=== PATIENT | male | born 1985 | race Caucasian/White ===

== ENCOUNTER 2018-02-25 21:02 | Emergency (ER) | payer SELFPAY ==
--- NOTE | 2018-02-25 22:12 | ER Document Report ---
HPI - HPI Patient complains to provider of: Skin lesion to the toe Onset: Other - 10 months Onset/Duration: Worse Quality of pain: Achy Pain Level: 1 Context: Patient states that he got a blister to his right great toe about 10 months ago. Patient states since then the area has become swollen, crusted. Patient states that he will use a shaver in the shower to remove skin. Patient states that he had a foul-smelling drainage from the wound today which prompted him to come in. Associated Symptoms: Other - Right great toe skin lesion Exacerbated by: Denies Relieved by: Denies Similar symptoms previously: No Recently seen / treated by doctor: No - ROS ROS below otherwise negative: Yes Systems Reviewed and Negative: Yes All other systems reviewed and negative - CONSTITUTIONAL Constitutional: DENIES: Fever, Chills - MUSCULOSKELETAL Musculoskeletal: REPORTS: Extremity pain - pinched nerve in lower back, Swelling - DERM Skin Color: Normal Notes: Thickened skin lesion Past Medical History - General Information source: Patient - Social History Smoking Status: Current Every Day Smoker Chew tobacco use (# tins/day): No Smoking Education Provided: Yes Frequency of alcohol use: None Drug Abuse: Marijuana Occupation: Traffic Family History: Reviewed & Not Pertinent Patient has suicidal ideation: No Patient has homicidal ideation: No - Medical History Medical History: Negative Renal/ Medical History: Denies: Hx Peritoneal Dialysis Surgical Hx: Negative - Immunizations Immunizations up to date: Yes Hx Diphtheria, Pertussis, Tetanus Vaccination: Yes Vertical Provider Document - CONSTITUTIONAL Agree With Documented VS: Yes Exam Limitations: No Limitations General Appearance: WD/WN, No Apparent Distress - INFECTION CONTROL TRAVEL OUTSIDE OF THE [place] IN LAST 30 DAYS: No - HEENT HEENT: Atraumatic, Normocephalic - NECK Neck: Normal Inspection - RESPIRATORY Respiratory: No Respiratory Distress - CARDIOVASCULAR Pulses: Normal: Dorsalis pedis - MUSCULOSKELETAL/EXTREMETIES Musculoskeletal/Extremeties: MAEW, FROM, Non-Tender - NEURO Level of Consciousness: Awake, Alert, Appropriate - DERM Integumentary: Warm, Dry Notes: Patient with a thickened skin lesion to the medial margin of right great toe with central darkened area, no noted purulent drainage Course - Re-evaluation Re-evalutation: 02/25/18 23:30 Patient continues hypertensive. Offered patient further evaluation of his hypertension as well as potentially starting him on medication to manage his blood pressure. Patient declined any additional labs or medications. Patient also advised that his blood sugar is elevated and he is likely diabetic. Patient states that he prefers to follow-up with the doctor on an outpatient basis and would not like to be started on any medications at this time. Patient advised that untreated diabetes can make chronic foot wounds slow to heal and prone to complications. - Vital Signs Vital signs: Temp Pulse Resp BP Pulse Ox 98.2 F 98 20 184/92 H 96 02/25/18 21:03 02/25/18 21:03 02/25/18 21:03 02/25/18 21:03 02/25/18 21:03 - Diagnostic Test Radiology reviewed: Pending, Image reviewed Discharge - Discharge Clinical Impression: Elevated blood pressure reading, Skin lesion of foot Condition: Stable Disposition: HOME, SELF-CARE Instructions: Cephalexin ([facility]), High Blood Pressure ([facility]) Additional Instructions: Return immediately for any new or worsening symptoms Followup with your primary care provider, call tomorrow to make a followup appointment Your blood sugar was mildly elevated today. Limit concentrated sweets and carbohydrates in your diet. you will need to follow-up with the primary doctor to have your blood sugar reevaluated to confirm that you do not have diabetes. Your blood pressure was elevated tonight, you will need to recheck with the primary doctor to have this reevaluated. Follow-up with dermatology for further evaluation of skin lesion. Prescriptions: Cephalexin Monohydrate [Keflex 500 mg Capsule] 500 mg PO Q6H 5 Days capsule Forms: Elevated Blood Pressure, Smoking Cessation Education Referrals: [facility] [Provider Group] - Follow up as needed SIMON LACKEY DO [ACTIVE STAFF] - Follow up as needed [facility] [Provider Group] - Follow up in 3-5 days
--- NOTE | 2018-02-25 23:45 | RADIOLOGY REPORT (SQ) ---
EXAM DESCRIPTION: TOE RIGHT CLINICAL HISTORY: 32 years, Male, r great toe wound/growth COMPARISON: None. NUMBER OF VIEWS: 3 Findings: Swelling Bones, joints, and soft tissues of TOE RIGHT appear otherwise intact. No significant effusion. IMPRESSION: Swelling.
[2018-02-26 01:16] VITALS: BP 185/95
== END 2018-02-25 23:50 | disposition home or self-care (01) ==
LOC: ER 21:02
DX: L98.9 Disorder of the skin and subcutaneous tissue, unspecified (principal); R03.0 Elevated blood-pressure reading, without diagnosis of hypertension; F17.200 Nicotine dependence, unspecified, uncomplicated
CPT/HCPCS: 82962; 99283

== ENCOUNTER 2019-11-24 10:47 | Inpatient (IN) | payer SELFPAY ==
--- NOTE | 2019-11-24 11:25 | ER Document Report ---
ED Medical Screen (RME) - General Chief Complaint: Abdominal Pain Stated Complaint: FEVER/LOWER BACK PAIN Time Seen by Provider: 11/24/19 11:12 TRAVEL OUTSIDE OF THE [place] IN LAST 30 DAYS: No - HPI Notes: 11/24/19 11:23 Patient is a 34-year-old male with no significant past medical history aside from obesity who presents complaining of having left mid abdominal pain is been present for the past 4 days and does not radiate. Patient states that over the past couple days he had chills and weakness. He has had excessive thirst throughout this time as well. Patient states that he did have URI symptoms which seem like the flu starting around New Year's and then improved, but his chills returned over the past 3 to 4 days. He does continue to have some nasal congestion and discharge. Denies drug allergies. I have treated and performed a rapid initial assessment of this patient. A comprehensive ED assessment and evaluation of the patient, analysis of test results and completion of medical decision making process will be conducted by additional ED providers. PHYSICAL EXAMINATION: GENERAL: Well-appearing, well-nourished and in no acute distress. A&Ox4. Answers questions appropriately. Abdomen: Limited exam in triage, tenderness over the left mid abdomen. Lungs: Grossly CTAB. - Related Data Allergies/Adverse Reactions: No Known Allergies Allergy (Verified 11/24/19 11:07) Past Medical History - Social History Drug Abuse: Marijuana Renal/ Medical History: Denies: Hx Peritoneal Dialysis - Immunizations Immunizations up to date: Yes Hx Diphtheria, Pertussis, Tetanus Vaccination: Yes Physical Exam - Vital signs Vitals: Temp Pulse Resp BP Pulse Ox 98.7 F 105 H 18 182/92 H 97 11/24/19 11:08 11/24/19 11:08 11/24/19 11:08 11/24/19 11:08 11/24/19 11:08 Course - Vital Signs Vital signs: Temp Pulse Resp BP Pulse Ox 98.7 F 105 H 18 182/92 H 97 11/24/19 11:08 11/24/19 11:08 11/24/19 11:08 11/24/19 11:08 11/24/19 11:08
[2019-11-24 11:41] LABS: ABSOLUTE BASOPHILS # (AUTO) 0.3 10^3/uL (0.0-0.2); ABSOLUTE LYMPHOCYTES (AUTO) 0.9 10^3/uL (0.5-4.7); ABSOLUTE MONOCYTES (AUTO) 0.8 10^3/uL (0.1-1.4); ABSOLUTE NEUT (AUTO) 11.1 10^3/uL (1.7-8.2); BASOPHILS % (AUTO) 2.1 % (0-2); EOSINOPHILS % (AUTO) 0.1 % (0-6); HEMATOCRIT 38.7 % (37.9-51.0); HEMOGLOBIN 13.8 g/dL (13.5-17.0); LYMPHOCYTES % (AUTO) 7.1 % (13-45); MEAN CORPUSCULAR HEMOGLOBIN 28.2 pg (27.0-33.4); MEAN CORPUSCULAR HGB CONC 35.6 g/dL (32.0-36.0); MEAN CORPUSCULAR VOLUME 79 fl (80-97); MONOCYTES % (AUTO) 6.2 % (3-13); PLATELET COUNT 259 10^3/uL (150-450); RED CELL DISTRIBUTION WIDTH 13.8 % (11.5-14.0); SEGMENTED NEUTROPHILS % (AUTO) 84.5 % (42-78); TOTAL CELLS COUNTED % (AUTO) 100 %; WHITE BLOOD COUNT 13.1 10^3/uL (4.0-10.5)
--- NOTE | 2019-11-24 11:55 | RADIOLOGY REPORT (SQ) ---
EXAM DESCRIPTION: CHEST 2 VIEWS COMPLETED DATE/TIME: 11/24/2019 11:38 am REASON FOR STUDY: cough COMPARISON: None. EXAM PARAMETERS: NUMBER OF VIEWS: two views TECHNIQUE: PA and lateral views of the chest were obtained. RADIATION DOSE: NA LIMITATIONS: none FINDINGS: LUNGS AND PLEURA: No consolidation, pleural effusion or pneumothorax. MEDIASTINUM AND HILAR STRUCTURES: No mediastinal or hilar contour abnormality. HEART AND VASCULAR STRUCTURES: The cardiac silhouette and pulmonary vasculature are within normal hills its. BONES: No acute findings. HARDWARE: None in the chest. OTHER: No other finding. IMPRESSION: No acute cardiopulmonary process. TECHNICAL DOCUMENTATION: JOB ID: [id number] [employer]- All Rights Reserved Reading location - IP/workstation name: [email or web address]
[2019-11-24 12:00] LABS: ALBUMIN 3.3 g/dL (3.5-5.0); ALKALINE PHOSPHATASE 79 U/L (38-126); ANION GAP 9 (5-19); ASPARTATE AMINO TRANSFERASE 21 U/L (17-59); BILIRUBIN,DIRECT 0.3 mg/dL (0.0-0.4); BILIRUBIN,TOTAL 1.6 mg/dL (0.2-1.3); BLOOD UREA NITROGEN 13 mg/dL (7-20); CALCIUM 8.5 mg/dL (8.4-10.2); CARBON DIOXIDE 28 mmol/L (22-30); CHLORIDE 93 mmol/L (98-107); GLUCOSE 368 mg/dL (75-110); POTASSIUM 4.9 mmol/L (3.6-5.0); TOTAL PROTEIN 6.8 g/dL (6.3-8.2)
--- NOTE | 2019-11-24 12:11 | ER Document Report ---
ED General - General Chief Complaint: Abdominal Pain Stated Complaint: FEVER/LOWER BACK PAIN Time Seen by Provider: 11/24/19 11:12 TRAVEL OUTSIDE OF THE [place] IN LAST 30 DAYS: No - HPI Notes: 34-year-old male to the emergency department with complaints of subjective fevers, shaking chills, general fatigue and weakness that has been ongoing since New Year's and in the past several days left-sided flank pain. He denies any nausea or vomiting or diarrhea. He does admit to increased thirst and urinary f requency. He denies any past medical history. He is denying any chest pain or shortness of breath. There is family history of diabetes. - Related Data Allergies/Adverse Reactions: No Known Allergies Allergy (Verified 11/24/19 11:07) Past Medical History - General Information source: Patient - Social History Smoking Status: Current Every Day Smoker Frequency of alcohol use: None Drug Abuse: Marijuana Lives with: Alone Family History: DM, Hypertension Patient has suicidal ideation: No Patient has homicidal ideation: No Renal/ Medical History: Denies: Hx Peritoneal Dialysis - Immunizations Immunizations up to date: Yes Hx Diphtheria, Pertussis, Tetanus Vaccination: Yes Review of Systems - Review of Systems Constitutional: Chills, Fever, Malaise, Weakness EENT: Nose congestion. denies: Ear pain, Throat pain Cardiovascular: denies: Chest pain, Palpitations, Dyspnea, Syncope, Dizziness, Lightheaded Respiratory: denies: Cough, Short of breath Gastrointestinal: Abdominal pain. denies: Diarrhea, Nausea, Vomiting, Constipation Genitourinary: Frequency, Flank pain Musculoskeletal: No symptoms reported Skin: No symptoms reported Neurological/Psychological: No symptoms reported -: Yes All other systems reviewed and negative Physical Exam - Vital signs Vitals: Temp Pulse Resp BP Pulse Ox 98.7 F 105 H 18 182/92 H 97 11/24/19 11:08 11/24/19 11:08 11/24/19 11:08 11/24/19 11:08 11/24/19 11:08 Interpretation: Normal - General General appearance: Alert Notes: Patient appears like he does not feel well. He is not in acute distress. - HEENT Head: Normocephalic, Atraumatic Eyes: Normal Pupils: PERRL Ears: Normal External canal: Normal Tympanic membrane: Normal Sinus: Normal Nasal: Normal Mouth/Lips: Normal Mucous membranes: Normal Pharynx: Normal Neck: Normal - Respiratory Respiratory status: No respiratory distress. No: Retractions, Tachypnea Chest status: Nontender. No: Accessory muscle use Breath sounds: Normal. No: Rales, Rhonchi, Stridor, Wheezing Chest palpation: Normal - Cardiovascular Rhythm: Regular Heart sounds: Normal auscultation Murmur: No - Abdominal Inspection: Obese Distension: No distension Bowel sounds: Normal Tenderness: Tender - There is tenderness to palpation over the left flank and left mid abdomen. There is no rebound or guarding. There is negative M cBurney's point and negative Edmonds sign. - Back Back: Normal, Nontender, CVA tenderness - Mild left-sided CVA tenderness - Neurological Neuro grossly intact: Yes Cognition: Normal Orientation: AAOx4 Ynes Coma Scale Eye Opening: Spontaneous [place] Coma Scale Verbal: Oriented Ynes Coma Scale Motor: Obeys Commands [place] Coma Scale Total: 15 Speech: Normal Cranial nerves: Normal Cerebellar coordination: Normal Motor strength normal: LUE, RUE, LLE, RLE Additional motor exam normals: Equal rn community health. No: Pronator drift Sensory: Normal - Psychological Associated symptoms: Normal affect, Normal mood - Skin Skin Temperature: Warm Skin Moisture: Dry Skin Color: Normal Skin irregularity: negative: Rash Course - Re-evaluation Re-evalutation: 11/24/19 Noted blood sugar. Patient has never had diabetes before. He does not appear to be in diabetic ketoacidosishis CO2 is normal, his anion gap is normal, he is not spilling ketones in his urine. Did obtain a CT of his abdomen given his flank pain and it appears that he may have an early pyelonephritis with a phlegmon. His urinalysis is not particularly infectious appearing although he does have some white blood cells in his urine. We will culture the urine and given the new onset diabetes we will go ahead and start him on an antibiotic. Discussed this patient with Dr. Saunders, ER attending. She would like for me to call the urologist at [facility] to discuss the patient's CT findings. Spoke with Dr. Robles, urologist in [place]. He states that he thinks the patient would be best suited to stay overnight for IV antibiotics. At this point since there is no definitive abscess on CT he would like for him to get antibiotics and to be watched closely. He states that Rocephin is a good option for pyelonephritis. He states that the patient has difficulty in the next 48 to [address] scan should be done and if an abscess is there then it should be drained by IR. He states that he thinks that the patient could be admitted here at [place]. He states that if there is difficulty with IR if the patient and the patient progresses with an abscess that the hospitalist team is welcome to call him and he can work on IR at [facility] if necessary. He does suggest if the patient does well that he be sent home on Levaquin as well Updated the patient about this conversation and advised that it would be best if he stayed in the hospital for IV antibiotics and monitoring with good glycemic control. He agrees with the plan and consents to admission. Spoke with Dr. Marks, hospitalist, about the patient. He agrees with the plan for admission and is aware of the conversation I had with the urologist. He is aware of patient's blood sugar and it is trending since getting fluids and insulin. He is aware patient's white count of 13 and his reassuring vital signs. He is aware of CT reading. He is aware of suggestion from urology and he agrees with the plan for admission. He would like for him to go to the medical floor. Impression: New onset diabetes without ketoacidosis with hyperglycemia, left-joana ed flank pain with pyelonephritis with phlegmon. Patient will be admitted to the hospitalist team here and further monitored with IV antibiotics. My ER attending is aware of the admission and she agrees. - Vital Signs Vital signs: Temp Pulse Resp BP Pulse Ox 99.9 F 103 H 14 144/96 H 94 11/24/19 18:07 11/24/19 18:07 11/24/19 18:07 11/24/19 18:07 11/24/19 18:07 - Laboratory Result Diagrams: 11/24/19 11:30 11/24/19 11:30 Laboratory results interpreted by me: 11/24/19 11/24/19 11/24/19 11:30 11:30 12:45 WBC 13.1 H MCV 79 L Lymph % (Auto) 7.1 L Baso % (Auto) 2.1 H Absolute Neuts (auto) 11.1 H Absolute Basos (auto) 0.3 H Seg Neutrophils % 84.5 H Sodium 130.0 L Chloride 93 L Glucose 368 H POC Glucose Total Bilirubin 1.6 H Albumin 3.3 L Urine Protein 30 H Urine Glucose (UA) >=500 H Urine Blood SMALL H 11/24/19 11/24/19 14:56 16:02 WBC MCV Lymph % (Auto) Baso % (Auto) Absolute Neuts (auto) Absolute Basos (auto) Seg Neutrophils % Sodium Chloride Glucose POC Glucose 312 H 295 H Total Bilirubin Albumin Urine Protein Urine Glucose (UA) Urine Blood - Diagnostic Test Radiology reviewed: Image reviewed, Reports reviewed Discharge - Discharge Clinical Impression: Hyperglycemia, Pyelonephritis Condition: Stable Disposition: HOME, SELF-CARE Admitting Provider: Selina (Hospitalist) Unit Admitted: Medical Floor
[2019-11-24] MEDS ORDERED: ONDANSETRON HCL INJ/PF 4 MG/2 ML SDV IV ONE (12:57)
[2019-11-24] MEDS ORDERED: NORMAL SALINE 1000 ML 1,000 ML IV ONE ×3 (12:57→18:22)
[2019-11-24 13:03] LABS: APPEARANCE,URINE CLEAR; BILIRUBIN,URINE NEGATIVE (NEGATIVE); COLOR,URINE YELLOW; GLUCOSE, URINE >=500 mg/dL (NEGATIVE); KETONES,URINE NEGATIVE (NEGATIVE); PROTEIN,URINE 30 mg/dL (NEGATIVE); URINE SPECIFIC GRAVITY 1.035; UROBILINOGEN,URINE NEGATIVE mg/dL (<2.0)
--- NOTE | 2019-11-24 13:03 | RADIOLOGY REPORT (SQ) ---
EXAM DESCRIPTION: CT ABD/PELVIS WITH IV ONLY COMPLETED DATE/TIME: 11/24/2019 12:36 pm REASON FOR STUDY: Left abd pain COMPARISON: None. TECHNIQUE: CT scan of the abdomen and pelvis performed using helical scanning technique with dynamic intravenous contrast injection. No oral contrast. Images reviewed with lung, soft tissue, and bone windows. Reconstructed coronal and sagittal MPR images reviewed. Delayed images for evaluation of the urinary system also acquired. All images stored on PACS. All CT scanners at this facility use dose modulation, iterative reconstruction, and/or weight based d osing when appropriate to reduce radiation dose to as low as reasonably achievable (ALARA). [facility]: Dose Right [facility]: CareDose [facility]: Dose Right [facility]: Teradose 4D [facility]: Needcheck CONTRAST TYPE AND DOSE: Contrast/concentration: Isovue 350.00 mg/ml; Total Contrast Delivered: 100.0 ml; Total Saline Delivered: 64.0 ml RENAL FUNCTION: GFR > 60. RADIATION DOSE: CT Rad equipment meets quality standard of care and radiation dose reduction techniq ues were employed. CTDIvol: 21.1 mGy. DLP: 2397 mGy-cm.. LIMITATIONS: None. FINDINGS: LOWER CHEST: No acute findings LIVER: Hepatic steatosis. The portal veins are patent. There is no hepatic mass. SPLEEN: The spleen is enlarged and it measures 20 cm in AP diameter. PANCREAS: No abnormality of the pancreas. GALLBLADDER: No abnormality of the gallbladder that is apparent on CT. ADRENAL GLANDS: No abnormality of the adrenal glands. RIGHT KIDNEY AND URETER: No solid mass, hydronephrosis, nephrolithiasis, hydroureter or ureterolithia sis. LEFT KIDNEY AND URETER: The kidney is enlarged. There is a rounded heterogeneous area in the posteri or-lateral aspect of the kidney that measures approximately 5.8 x 5.3 cm ; the area is associated wit h stranding of the perirenal fat and thickening of the adjacent retroperitoneal reflections. The fat stranding extends along the proximal left ureter. There is no hydronephrosis, hydroureter, nephroli thiasis or ureterolithiasis. AORTA AND VESSELS: No aneurysm or dissection of the abdominal aorta. RETROPERITONEUM: No retroperitoneal adenopathy, hemorrhage or mass. BOWEL AND PERITONEAL CAVITY: Colonic diverticulosis without diverticulitis. There is no bowel obstru ction, bowel wall thickening, or pericolonic/perienteric inflammation. There is no mesenteric adenop athy, free intraperitoneal fluid or mesenteric/omental inflammation. APPENDIX: Normal. PELVIS: No abnormality. ABDOMINAL WALL: No masses or hernias BONES: No acute findings. OTHER: Accessory splenule. IMPRESSION: 1. Rounded heterogeneous area in the posterolateral aspect of the left kidney that measu res approximately 5.8 x 5.3 cm. The finding is favored to represent a pyelonephritis with phlegmon f ormation. Correlate with urinalysis. 2. Splenomegaly. TECHNICAL DOCUMENTATION: JOB ID: [id number] Quality ID # [id number]: Final reports with documentation of one or more dose reduction techniques (e.g., Au tomated exposure control, adjustment of the mA and/or kV according to patient size, use of iterative reconstruction technique) 2010 [employer]- All Rights Reserved Reading location - IP/workstation name: [email or web address]
[2019-11-24] MEDS ORDERED: MORPHINE SULFATE 10 MG/ML INJ IV ONE (14:03)
[2019-11-24] MEDS ORDERED: CEFTRIAXONE 1 GM/D5W RTU 1 GM/50 ML RTUPB IV ONE (14:09)
[2019-11-24] MEDS ORDERED: INSULIN REG, HUMAN 100 UNIT/ML 3 ML VIAL (PYX) IV ONE (15:02)
[2019-11-24] MEDS ORDERED: ACETAMINOPHEN 325 MG TABLET PO PRN (18:07)
[2019-11-24] MEDS ORDERED: MAGNESIUM HYDROXIDE SUSP 30 ML UDCUP PO PRN (18:07)
[2019-11-24] MEDS ORDERED: ONDANSETRON HCL INJ/PF 4 MG/2 ML SDV IV PRN (18:07)
[2019-11-24] MEDS ORDERED: MAG HYDROX/AL HYDROX/SIMETH SUSP 30 ML UDCUP PO PRN (18:07)
[2019-11-24] MEDS ORDERED: KETOROLAC TROMETHAMINE INJ/PF 30 MG/1 ML SDV IV PRN (18:15)
[2019-11-24] MEDS ORDERED: MORPHINE SULFATE 10 MG/ML INJ IV PRN (18:15)
[2019-11-24] MEDS ORDERED: DEXTROSE 40% GEL 15 GM TUBE PO PRN ×2 (18:16)
[2019-11-24] MEDS ORDERED: DEXTROSE 50%-WATER 25 GM/50 ML DISP.SYRIN IV PRN ×2 (18:16)
[2019-11-24] MEDS ORDERED: GLUCAGON,HUMAN RECOMB 1 MG INJ IM PRN (18:16)
[2019-11-24] MEDS ORDERED: TRAZODONE HCL 50 MG TABLET PO PRN (18:45)
[2019-11-24] MEDS ORDERED: NICOTINE 21 MG/24 HR PATCH.TD24 TD PRN (18:45)
--- NOTE | 2019-11-24 18:55 | PDOC H&P ---
History of Present Illness Admission Date/PCP: 11/24/19 17:05 Patient complains of: Left flank pain, chills and shakes History of Present Illness: LOC BRAVO is a 34 year old male who does not see a primary care physician regularly. He does not report any significant past medical history. He states that as early as [place] he had an episode of chills and shakes. He felt warm. Without any intervention he felt slightly better. He thought he had a flulike illness over the next several days and in fact 5 to 6 days after the initial onset he felt better. He was active. His appetite was good. On November 22 he had Reiger's again. He had some nausea with decreased appetite. He still felt bad on November 23 and today, November 24, without improvement who presented to the emergency department. He was found to be tachycardic, slightly hypertensive, low-grade fever with some diaphoresis. He was mentating clearly. Laboratory assessment revealed a glucose of 368. White blood cell count was slightly elevated at 13,000. Total bilirubin was slightly elevated at 1.5. Urinalysis was positive for glucose, 4 white cells per high-power field, 4 red cells per high-power field with leukocyte esterase and nitrite negative. Glucose and protein were positive. CT scan showed splenomegaly as well as a heterogeneous collection on the left kidney that is 5 x 5 cm approximately. This was felt to be pyelonephritis or early abscess. The emergency department provider spoke to urology (Dr. Joyce). The plan was to admit the patient. Place the patient on IV antibiotics and obtain good control of his diabetes. He suggested repeating a CT scan in 48 hours and if there is abscess formation have interventional radiology drain the lesion. If there is no progressive change in the lesion the patient can be transitioned to oral Levaquin and sent home with urology follow-up. Renal function is normal at this time. The patient was referred to the hospital service for admission. 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 Decision making would fall to his mother. Family History Family History: DM Parental Family History Reviewed: Yes - Mother with diabetes, father unknown Children Family History Reviewed: NA Sibling(s) Family History Reviewed.: NA Medication/Allergy Home Medications: Ciprofloxacin HCl [Ciloxan] 1 drop OP ASDIR PRN #1 bottle 01/28/13 Cephalexin Monohydrate [Keflex 500 mg Capsule] 500 mg PO Q6H 5 Days capsule 02/25/18 Allergies/Adverse Reactions: No Known Allergies Allergy (Verified 11/24/19 11:07) Review of Systems All systems: reviewed and no additional remarkable complaints except as stated Constitutional: PRESENT: chills, fever(s), headache(s), night sweats Gastrointestinal: PRESENT: constipation - Occasional Genitourinary: PRESENT: other - Left flank pain Endocrine: PRESENT: polydipsia, polyuria Physical Exam Vital Signs: Temp Pulse Resp BP Pulse Ox 99.9 F 103 H 14 144/96 H 94 11/24/19 18:07 11/24/19 18:07 11/24/19 18:07 11/24/19 18:07 11/24/19 18:07 Intake & Output 11/23/19 11/24/19 11/25/19 06:59 06:59 06:59 Intake Total 2050 Output Total 425 Balance 1625 Weight 151.9 kg General appearance: PRESENT: cooperative, mild distress, morbidly obese, well- developed. ABSENT: disheveled Head exam: PRESENT: atraumatic, normocephalic Eye exam: PRESENT: conjunctiva pink, EOMI, PERRLA, scleral icterus. ABSENT: nystagmus Ear exam: PRESENT: normal external ear exam. ABSENT: bleeding, drainage Mouth exam: PRESENT: dry mucosa, neck supple, tongue midline Teeth exam: ABSENT: poor dentation Neck exam: PRESENT: full ROM. ABSENT: lymphadenopathy, tenderness Respiratory exam: PRESENT: clear to auscultation fabiola, symmetrical, unlabored. ABSENT: accessory muscle use, prolonged expiratory phas, rales, rhonchi, tachypnea, wheezes Cardiovascular exam: PRESENT: RRR, +S1, +S2 GI/Abdominal exam: PRESENT: normal bowel sounds, soft, tenderness - Tenderness begins lateral to the left midclavicular line. He is tender through the post erior axillary line., other - Protuberant abdomen. ABSENT: guarding Rectal exam: PRESENT: deferred Gentrourinary exam: ABSENT: indwelling catheter Extremities exam: PRESENT: full ROM. ABSENT: joint swelling, pedal edema Musculoskeletal exam: PRESENT: ambulatory, normal inspection. ABSENT: deformity Neurological exam: PRESENT: alert, awake, oriented to person, oriented to place, oriented to time, oriented to situation, CN II-XII grossly intact. ABSENT: altered, motor sensory deficit Psychiatric exam: PRESENT: appropriate affect. ABSENT: agitated, anxious Focused psych exam: ABSENT: delusional, restlessness Skin exam: PRESENT: warm - And slightly diaphoretic. ABSENT: rash Results Laboratory Results: 11/24/19 11:30 11/24/19 11:30 11/24/19 11/24/19 11/24/19 11:30 11:30 12:45 WBC 13.1 H RBC 4.90 Hgb 13.8 Hct 38.7 MCV 79 L MCH 28.2 MCHC 35.6 RDW 13.8 Plt Count 259 Seg Neutrophils % 84.5 H Sodium 130.0 L Potassium 4.9 Chloride 93 L Carbon Dioxide 28 Anion Gap 9 BUN 13 Creatinine 0.91 Est GFR ( Amer) > 60 Glucose 368 H Calcium 8.5 Total Bilirubin 1.6 H AST 21 Alkaline Phosphatase 79 Total Protein 6.8 Albumin 3.3 L Lipase 103.8 Urine Color YELLOW Urine Appearance CLEAR Urine pH 7.0 Ur Specific [place] 1.035 Urine Protein 30 H Urine Glucose (UA) >=500 H Urine Ketones NEGATIVE Urine Blood SMALL H Urine RBC (Auto) 4 Impressions: Abdomen/Pelvis CT 11/24/19 11:22 IMPRESSION: 1. Rounded heterogeneous area in the posterolateral aspect of the left kidney that measures approximately 5.8 x 5.3 cm. The finding is favored to represent a pyelonephritis with phlegmon formation. Correlate with urinalysis. 2. Splenomegaly. Chest X-Ray 11/24/19 11:22 IMPRESSION: No acute cardiopulmonary process. Assessment and Plan - Diagnosis (1) Pyelonephritis Is this a current diagnosis for this admission?: Yes (2) Hyperglycemia due to type 2 diabetes mellitus Qualifiers: Diabetes mellitus manager intermediate insulin use: without manager intermediate use Qualified Code(s): E11.65 - Type 2 diabetes mellitus with hyperglycemia Is this a current diagnosis for this admission?: Yes (3) Hyponatremia Is this a current diagnosis for this admission?: Yes (4) New onset type 2 diabetes mellitus Is this a current diagnosis for this admission?: Yes (5) Splenomegaly Is this a current diagnosis for this admission?: Yes (6) Morbid obesity with BMI of 45.0-49.9, adult Is this a current diagnosis for this admission?: Yes (7) Tobacco dependence due to cigarettes Is this a current diagnosis for this admission?: Yes (8) Vapes nicotine containing substance Is this a current diagnosis for this admission?: Yes - Plan Summary Summary: Pyelonephritis-per the suggestion of urology will admit the patient. The patient will be on IV ceftriaxone. Will monitor the patient closely. If he improves then we can discharge him home on oral Levaquin and set up a follow-up with urology. If there is no improvement repeat the CT scan in 48 hours and if an abscess has formed interventional radiology can drain it. New onset diabetes mellitus-the patient will have Accu-Cheks with meals and at bedtime. I have started metformin 500 mg twice daily. I have initiated Humulin 70/30 twice daily. Without insurance I would like to initiate a regimen that would be affordable for this patient. Hyponatremia-the sodium is low partly due to the hyperglycemia. Patient also was experiencing increased thirst. He will be on aggressive IV fluids for the infection and we will monitor the electrolytes and renal function. Morbid obesity-the patient's BMI is 45.4. This certainly could contribute to the diabetes. Once he has better, I expect a strict diabetes diet to help with weight loss. Splenomegaly-the patient's spleen is enlarged. There is no obvious etiology. Consider further assessment as an outpatient. Tobacco dependence-the patient is a cigarette smoker. He was smoking up to 2- 1/2 packs daily. 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 A nicotine patch will be available if needed. Constipation-the patient reports intermittent constipation. We will start with Colace and have other medications available. - Time Time Spent with patient: 35 or more minutes Smoking Cessation Education: 3 to 10 minutes Medications reviewed and adjusted accordingly: Yes Anticipated discharge: Home - Inpatient Certification Based on my medical assessment, after consideration of the patient's comorbidities, presenting symptoms, or acuity I expect that the services needed warrant INPATIENT care.: Yes I certify that my determination is in accordance with my understanding of Medicare's requirements for reasonable and necessary INPATIENT services [42 CFR 412.3e].: Yes Medical Necessity: Need Close Monitoring Due to Risk of Patient Decompensation, Need For IV Fluids, Need for Pain Control, Need for IV Antibiotics, Risk of Com plication if Not Cared For in Hospital Post Hospital Care: D/C Revenue Inspector Documentation
[2019-11-24] MEDS: INSULIN REG, HUMAN 100 UNIT/ML 3 ML VIAL (PYX) SUBCUT SCH (22:59)
[2019-11-24] MEDS: NORMAL SALINE 1000 ML 1,000 ML IV PRN (23:31)
[2019-11-25 05:36] LABS: ABSOLUTE LYMPHOCYTES (AUTO) 0.9 10^3/uL (0.5-4.7); ABSOLUTE MONOCYTES (AUTO) 0.8 10^3/uL (0.1-1.4); ABSOLUTE NEUT (AUTO) 7.5 10^3/uL (1.7-8.2); BASOPHILS % (AUTO) 0.5 % (0-2); EOSINOPHILS % (AUTO) 0.5 % (0-6); HEMATOCRIT 36.2 % (37.9-51.0); HEMOGLOBIN 13.3 g/dL (13.5-17.0); LYMPHOCYTES % (AUTO) 9.8 % (13-45); MEAN CORPUSCULAR HEMOGLOBIN 28.9 pg (27.0-33.4); MEAN CORPUSCULAR HGB CONC 36.7 g/dL (32.0-36.0); MEAN CORPUSCULAR VOLUME 79 fl (80-97); MONOCYTES % (AUTO) 8.6 % (3-13); PLATELET COUNT 248 10^3/uL (150-450); RED BLOOD COUNT 4.61 10^6/uL (4.35-5.55); RED CELL DISTRIBUTION WIDTH 14.1 % (11.5-14.0); SEGMENTED NEUTROPHILS % (AUTO) 80.6 % (42-78); TOTAL CELLS COUNTED % (AUTO) 100 %; WHITE BLOOD COUNT 9.2 10^3/uL (4.0-10.5)
[2019-11-25 05:54] LABS: ALKALINE PHOSPHATASE 72 U/L (38-126); ANION GAP 10 (5-19); ASPARTATE AMINO TRANSFERASE 27 U/L (17-59); BILIRUBIN,DIRECT 0.3 mg/dL (0.0-0.4); BILIRUBIN,TOTAL 1.2 mg/dL (0.2-1.3); BLOOD UREA NITROGEN 13 mg/dL (7-20); CALCIUM 8.1 mg/dL (8.4-10.2); CARBON DIOXIDE 25 mmol/L (22-30); CHLORIDE 98 mmol/L (98-107); GLUCOSE 278 mg/dL (75-110); POTASSIUM 4.6 mmol/L (3.6-5.0); TOTAL PROTEIN 6.4 g/dL (6.3-8.2)
[2019-11-25] MEDS: PANTOPRAZOLE SODIUM 20 MG TABLET.DR PO SCH (05:58)
[2019-11-25] MEDS: NORMAL SALINE 1000 ML 1,000 ML IV PRN (07:26)
[2019-11-25] MEDS ORDERED: HUM INSULIN NPH/REG INSULIN HM 100 UNIT/1 ML 3 ML SUBCUT SCH (08:00)
[2019-11-25] MEDS: INSULIN REG, HUMAN 100 UNIT/ML 3 ML VIAL (PYX) SUBCUT SCH ×4 (08:49→21:59)
[2019-11-25] MEDS: METFORMIN HCL 500 MG TABLET PO SCH ×2 (08:49→16:53)
[2019-11-25] MEDS: DOCUSATE SODIUM 100 MG CAPSULE PO SCH ×2 (09:24→17:00)
[2019-11-25] MEDS: HUM INSULIN NPH/REG INSULIN HM 100 UNIT/1 ML 3 ML SUBCUT SCH ×2 (09:25→16:54)
[2019-11-25] MEDS ORDERED: CEFTRIAXONE 2 GM/D5W RTU 2 GM/50 ML RTUPB IV SCH (10:00)
--- NOTE | 2019-11-25 14:33 | PDOC DISCHARGE SUMMARY ---
Impression - Admit/DC Date/PCP Admission Date/Primary Care Provider: 11/24/19 18:07 Discharge Date: 11/25/19 - Discharge Diagnosis (1) Pyelonephritis Is this a current diagnosis for this admission?: Yes (2) Hyperglycemia due to type 2 diabetes mellitus Is this a current diagnosis for this admission?: Yes (3) Hyponatremia Is this a current diagnosis for this admission?: Yes (4) New onset type 2 diabetes mellitus Is this a current diagnosis for this admission?: Yes (5) Splenomegaly Is this a current diagnosis for this admission?: Yes (6) Morbid obesity with BMI of 45.0-49.9, adult Is this a current diagnosis for this admission?: Yes (7) Tobacco dependence due to cigarettes Is this a current diagnosis for this admission?: Yes (8) Vapes nicotine containing substance Is this a current diagnosis for this admission?: Yes - Assessment Summary: Pyelonephritis-per the suggestion of urology will admit the patient. The patient will be on IV ceftriaxone. Will monitor the patient closely. If he improves then we can discharge him home on oral Levaquin and set up a follow-up with urology. If there is no improvement repeat the CT scan in 48 hours and if an abscess has formed interventional radiology can drain it. New onset diabetes mellitus-the patient will have Accu-Cheks with meals and at bedtime. I have started metformin 500 mg twice daily. I have initiated Humulin 70/30 twice daily. Without insurance I would like to initiate a regimen that would be affordable for this patient. Hyponatremia-the sodium is low partly due to the hyperglycemia. Patient also was experiencing increased thirst. He will be on aggressive IV fluids for the infection and we will monitor the electrolytes and renal function. Morbid obesity-the patient's BMI is 45.4. This certainly could contribute to the diabetes. Once he has better, I expect a strict diabetes diet to help with weight loss. Splenomegaly-the patient's spleen is enlarged. There is no obvious etiology. Consider further assessment as an outpatient. Tobacco dependence-the patient is a cigarette smoker. He was smoking up to 2- 1/2 packs daily. 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 A nicotine patch will be available if needed. Constipation-the patient reports intermittent constipation. We will start with Colace and have other medications available. - Additional Information Resuscitation Status: Full Code Discharge Diet: Diabetic Discharge Activity: Activity As Tolerated Referrals: [facility] [Outside] Prescriptions: Metformin HCl [Glucophage 500 mg Tablet] 500 mg PO BIDACBS 15 Days #30 tablet Glipizide [Glucotrol 5 mg Tablet] 5 mg PO BIDACBS 15 Days #30 tablet Levofloxacin [Levaquin 750 mg Tablet] 750 mg PO DAILY 10 Days #10 tablet Home Medications: Glipizide [Glucotrol 5 mg Tablet] 5 mg PO BIDACBS 15 Days #30 tablet 11/25/19 Levofloxacin [Levaquin 750 mg Tablet] 750 mg PO DAILY 10 Days #10 tablet 11/25/19 Metformin HCl [Glucophage 500 mg Tablet] 500 mg PO BIDACBS 15 Days #30 tablet 11/25/19 Physical Exam Vital Signs: Temp Pulse Resp BP Pulse Ox 98.4 F 93 16 161/92 H 95 11/25/19 11:04 11/25/19 11:04 11/25/19 11:04 11/25/19 11:04 11/25/19 11:04 Intake & Output 11/24/19 11/25/19 11/26/19 06:59 06:59 06:59 Intake Total 4480 1050 Output Total 425 Balance 4055 1050 Weight 151.9 kg Results Laboratory Results: WBC 9.2 10^3/uL (4.0-10.5) 11/25/19 05:13 RBC 4.61 10^6/uL (4.35-5.55) 11/25/19 05:13 Hgb 13.3 g/dL (13.5-17.0) L 11/25/19 05:13 Hct 36.2 % (37.9-51.0) L 11/25/19 05:13 MCV 79 fl (80-97) L 11/25/19 05:13 MCH 28.9 pg (27.0-33.4) 11/25/19 05:13 MCHC 36.7 g/dL (32.0-36.0) H 11/25/19 05:13 RDW 14.1 % (11.5-14.0) H 11/25/19 05:13 Plt Count 248 10^3/uL (150-450) 11/25/19 05:13 Lymph % (Auto) 9.8 % (13-45) L 11/25/19 05:13 [place] % (Auto) 8.6 % (3-13) 11/25/19 05:13 Eos % (Auto) 0.5 % (0-6) 11/25/19 05:13 Baso % (Auto) 0.5 % (0-2) 11/25/19 05:13 Absolute Neuts (auto) 7.5 10^3/uL (1.7-8.2) 11/25/19 05:13 Absolute Lymphs (auto) 0.9 10^3/uL (0.5-4.7) 11/25/19 05:13 Absolute Monos (auto) 0.8 10^3/uL (0.1-1.4) 11/25/19 05:13 Absolute Eos (auto) 0.0 10^3/uL (0.0-0.6) 11/25/19 05:13 Absolute Basos (auto) 0.0 10^3/uL (0.0-0.2) 11/25/19 05:13 Seg Neutrophils % 80.6 % (42-78) H 11/25/19 05:13 Sodium 132.9 mmol/L (137-145) L 11/25/19 05:13 Potassium 4.6 mmol/L (3.6-5.0) 11/25/19 05:13 Chloride 98 mmol/L (98-107) 11/25/19 05:13 Carbon Dioxide 25 mmol/L (22-30) 11/25/19 05:13 Anion Gap 10 (5-19) 11/25/19 05:13 BUN 13 mg/dL (7-20) 11/25/19 05:13 Creatinine 0.79 mg/dL (0.52-1.25) 11/25/19 05:13 Est GFR ( Amer) > 60 (>60) 11/25/19 05:13 Est GFR (MDRD) Non-Af > 60 (>60) 11/25/19 05:13 Glucose 278 mg/dL (75-110) H 11/25/19 05:13 POC Glucose 285 mg/dL (70-110) H 11/25/19 12:22 Calcium 8.1 mg/dL (8.4-10.2) L 11/25/19 05:13 Magnesium 2.0 mg/dL (1.6-2.3) 11/25/19 05:13 Total Bilirubin 1.2 mg/dL (0.2-1.3) 11/25/19 05:13 Direct Bilirubin 0.3 mg/dL (0.0-0.4) 11/25/19 05:13 Neonat Total Bilirubin Not Reportable 11/25/19 05:13 Neonat Direct Bilirubin Not Reportable 11/25/19 05:13 Neonat Indirect Bili Not Reportable 11/25/19 05:13 AST 27 U/L (17-59) 11/25/19 05:13 ALT 23 U/L (<50) 11/25/19 05:13 Alkaline Phosphatase 72 U/L (38-126) 11/25/19 05:13 Total Protein 6.4 g/dL (6.3-8.2) 11/25/19 05:13 Albumin 3.0 g/dL (3.5-5.0) L 11/25/19 05:13 Lipase 103.8 U/L (23-300) 11/24/19 11:30 TSH 4.76 uIU/mL (0.47-4.68) H 11/25/19 05:13 Urine Color YELLOW 11/24/19 12:45 Urine Appearance CLEAR 11/24/19 12:45 Urine pH 7.0 (5.0-9.0) 11/24/19 12:45 Ur Specific [place] 1.035 11/24/19 12:45 Urine Protein 30 mg/dL (NEGATIVE) H 11/24/19 12:45 Urine Glucose (UA) >=500 mg/dL (NEGATIVE) H 11/24/19 12:45 Urine Ketones NEGATIVE mg/dL (NEGATIVE) 11/24/19 12:45 Urine Blood SMALL (NEGATIVE) H 11/24/19 12:45 Urine Nitrite (Reflex) NEGATIVE (NEGATIVE) 11/24/19 12:45 Urine Bilirubin NEGATIVE (NEGATIVE) 11/24/19 12:45 Urine Urobilinogen NEGATIVE mg/dL (<2.0) 11/24/19 12:45 Leukocyte Esterase Rfl NEGATIVE (NEGATIVE) 11/24/19 12:45 Urine RBC (Auto) 4 /HPF 11/24/19 12:45 Urine WBC (Reflex) 4 /HPF 11/24/19 12:45 Urine Mucus (Auto) RARE /LPF 11/24/19 12:45 Urine Ascorbic Acid NEGATIVE (NEGATIVE) 11/24/19 12:45 Impressions: Abdomen/Pelvis CT 11/24/19 11:22 IMPRESSION: 1. Rounded heterogeneous area in the posterolateral aspect of the left kidney that measures approximately 5.8 x 5.3 cm. The finding is favored to represent a pyelonephritis with phlegmon formation. Correlate with urinalysis. 2. Splenomegaly. Chest X-Ray 11/24/19 11:22 IMPRESSION: No acute cardiopulmonary process.
[2019-11-25] MEDS ORDERED: LEVOFLOXACIN 750 MG TABLET PO SCH (15:00)
[2019-11-25] MEDS ORDERED: LORAZEPAM 1 MG TABLET PO PRN (15:29)
[2019-11-25] MEDS: GLIPIZIDE 5 MG TABLET PO SCH (17:13)
[2019-11-25] MEDS: LINEZOLID 600 MG TABLET PO SCH (17:13)
--- NOTE | 2019-11-25 18:54 | PDOC PROGRESS REPORT ---
Subjective Progress Note for:: 11/25/19 Subjective:: M was completed the patient's discharge because he refused to let us put an IV back in and was going to leave AGAINST MEDICAL ADVICE. Because of his infection and the bioavailability of Levaquin I was prepared to discharge him with Levaquin, metformin and Glucotrol (for his diabetes) when microbiology called and said that all of his cultures are positive for MRSA. Explained to the patient that he needed to stay and he agreed. Reason For Visit: PYELONEPHRITIS,NEW ONSET DIABETES MELLITUS,MORBID Physical Exam Vital Signs: Temp Pulse Resp BP Pulse Ox 98.6 F 93 18 141/88 H 100 11/25/19 15:27 11/25/19 15:27 11/25/19 15:27 11/25/19 15:27 11/25/19 15:27 Intake & Output 11/24/19 11/25/19 11/26/19 06:59 06:59 06:59 Intake Total 4480 1850 Output Total 425 Balance 4055 1850 Weight 151.9 kg General appearance: PRESENT: mild distress Respiratory exam: PRESENT: clear to auscultation fabiola. ABSENT: rales, rhonchi, wheezes Cardiovascular exam: PRESENT: RRR, +S1, +S2 GI/Abdominal exam: PRESENT: normal bowel sounds, tenderness - cutting machine tender decorative on the left flank, other - Protuberant abdomen Neurological exam: PRESENT: alert, awake, oriented to person, oriented to place, oriented to time, oriented to situation, CN II-XII grossly intact Psychiatric exam: PRESENT: agitated Results Laboratory Results: 11/25/19 05:13 11/25/19 05:13 11/25/19 11/25/19 11/25/19 05:13 05:13 05:13 WBC 9.2 RBC 4.61 Hgb 13.3 L Hct 36.2 L MCV 79 L MCH 28.9 MCHC 36.7 H RDW 14.1 H Plt Count 248 Seg Neutrophils % 80.6 H Sodium 132.9 L Potassium 4.6 Chloride 98 Carbon Dioxide 25 Anion Gap 10 BUN 13 Creatinine 0.79 Est GFR ( Amer) > 60 Glucose 278 H Calcium 8.1 L Magnesium 2.0 Total Bilirubin 1.2 AST 27 Alkaline Phosphatase 72 Total Protein 6.4 Albumin 3.0 L TSH 4.76 H 11/24/19 15:55 Blood Blood Culture (PCR) - Final Staphylococcus Aureus Impressions: Abdomen/Pelvis CT 11/24/19 11:22 IMPRESSION: 1. Rounded heterogeneous area in the posterolateral aspect of the left kidney that measures approximately 5.8 x 5.3 cm. The finding is favored to represent a pyelonephritis with phlegmon formation. Correlate with urinalysis. 2. Splenomegaly. Chest X-Ray 11/24/19 11:22 IMPRESSION: No acute cardiopulmonary process. Assessment and Plan - Diagnosis (1) Pyelonephritis Is this a current diagnosis for this admission?: Yes (2) Hyperglycemia due to type 2 diabetes mellitus Qualifiers: Diabetes mellitus vocational school teacher insulin use: without fci use Qualified Code(s): E11.65 - Type 2 diabetes mellitus with hyperglycemia Is this a current diagnosis for this admission?: Yes (3) Hyponatremia Is this a current diagnosis for this admission?: Yes (4) New onset type 2 diabetes mellitus Is this a current diagnosis for this admission?: Yes (5) Splenomegaly Is this a current diagnosis for this admission?: Yes (6) Morbid obesity with BMI of 45.0-49.9, adult Is this a current diagnosis for this admission?: Yes (7) Tobacco dependence due to cigarettes Is this a current diagnosis for this admission?: Yes (8) Vapes nicotine containing substance Is this a current diagnosis for this admission?: Yes (9) MRSA bacteremia Is this a current diagnosis for this admission?: Yes - Plan Summary Summary: Pyelonephritis-per the suggestion of urology will admit the patient. The patient will be on IV ceftriaxone. Will monitor the patient closely. If he improves then we can discharge him home on oral Levaquin and set up a follow-up with urology. If there is no improvement repeat the CT scan in 48 hours and if an abscess has formed interventional radiology can drain it. New onset diabetes mellitus-the patient will have Accu-Cheks with meals and at bedtime. I have started metformin 500 mg twice daily. I have initiated Humulin 70/30 twice daily. Without insurance I would like to initiate a regimen that would be affordable for this patient. Hyponatremia-the sodium is low partly due to the hyperglycemia. Patient also was experiencing increased thirst. He will be on aggressive IV fluids for the infection and we will monitor the electrolytes and renal function. Morbid obesity-the patient's BMI is 45.4. This certainly could contribute to the diabetes. Once he has better, I expect a strict diabetes diet to help with weight loss. Splenomegaly-the patient's spleen is enlarged. There is no obvious etiology. Consider further assessment as an outpatient. Tobacco dependence-the patient is a cigarette smoker. He was smoking up to 2- 1/2 packs daily. 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 A nicotine patch will be available if needed. Constipation-the patient reports intermittent constipation. We will start with Colace and have other medications available. 11/25/2019-as noted above patient was about to leave. Luckily microbiology called. I will start the patient on Zyvox. Continue Glucotrol and metformin. The patient has no insurance and so we will need to figure out an antibiotic regimen that is acceptable. He will likely need several more days in the hospital before it is safe to discharge. - Time Time Spent with patient: 25-34 minutes Medications reviewed and adjusted accordingly: Yes
[2019-11-26] MEDS: LINEZOLID 600 MG TABLET PO SCH (05:14)
[2019-11-26] MEDS: PANTOPRAZOLE SODIUM 20 MG TABLET.DR PO SCH (05:14)
[2019-11-26 06:15] LABS: ANION GAP 10 (5-19); BLOOD UREA NITROGEN 13 mg/dL (7-20); CALCIUM 8.7 mg/dL (8.4-10.2); CARBON DIOXIDE 26 mmol/L (22-30); CHLORIDE 97 mmol/L (98-107); GLUCOSE 196 mg/dL (75-110); POTASSIUM 4.7 mmol/L (3.6-5.0)
[2019-11-26] MEDS: INSULIN REG, HUMAN 100 UNIT/ML 3 ML VIAL (PYX) SUBCUT SCH ×2 (07:35→11:54)
[2019-11-26] MEDS: HUM INSULIN NPH/REG INSULIN HM 100 UNIT/1 ML 3 ML SUBCUT SCH (07:35)
[2019-11-26] MEDS: GLIPIZIDE 5 MG TABLET PO SCH (07:35)
[2019-11-26] MEDS: METFORMIN HCL 500 MG TABLET PO SCH (07:35)
[2019-11-26 08:58] VITALS: BP 147/84
[2019-11-26] MEDS: DOCUSATE SODIUM 100 MG CAPSULE PO SCH (09:53)
[2019-11-26] MEDS ORDERED: LISINOPRIL 5 MG TABLET PO SCH (10:00)
--- NOTE | 2019-11-26 16:36 | Left Against Medical Advice ---
Against Medical Advice Admission Date/Time: 11/24/19 18:07 Primary Care Provider: Date of Patient Emigration: 11/26/19 - Diagnosis: (1) MRSA bacteremia Is this a current diagnosis for this admission?: Yes (2) Pyelonephritis Is this a current diagnosis for this admission?: Yes - Summary: Summary: Please see Admission and Progress Notes as well. LOC BRAVO is a 34 M, who LEFT AGAINST MEDICAL ADVICE. The Patient was admitted on 11/24/19 18:07. Patient was admitted for pyelonephritis. His CAT scan showed phlegmon formation which is concerning for possible early perinephric abscess. His blood cultures were also positive for MRSA. Upon encounter this morning, patient expressed that he definitely is leaving today. We discussed in length the gravity of his acute medical issues. Explained that going AGAINST MEDICAL ADVICE would likely lead to further morbidity and possible . He says that he feels much better today. He is well oriented and is competent. He says that he does not want to stay here at [facility] any longer. Further probed why this is so and he later verbalized that he does not want stay here due to some of his family members having had issues here before. He says that there is no way I could convince him to stay and that if he feels new symptoms, he will go to the [facility] in [place] instead to be admitted. Offered that I could try to initiate transfer from here to [facility]. He refused and he insisted on going home AGAINST MEDICAL ADVICE and that he will go to [place] himself if he feels he needs to.
== END 2019-11-26 11:43 | disposition left against medical advice (07) | DRG 690 ==
LOC: ER 10:47 → EH 17:05 → OBSVTOIN 18:07 → 4N 19:33
PROVIDERS: ADMIT Hospitalist; ATTEND Hospitalist
DX: N12 Tubulo-interstitial nephritis, not specified as acute or chronic (principal); E87.1 Hypo-osmolality and hyponatremia; Z68.42 Body mass index [BMI] 45.0-49.9, adult; R78.81 Bacteremia; F17.200 Nicotine dependence, unspecified, uncomplicated; B95.62 Methicillin resistant Staphylococcus aureus infection as the cause of diseases classified elsewhere; E11.65 Type 2 diabetes mellitus with hyperglycemia; E66.01 Morbid (severe) obesity due to excess calories; F17.210 Nicotine dependence, cigarettes, uncomplicated; F17.290 Nicotine dependence, other tobacco product, uncomplicated; R16.1 Splenomegaly, not elsewhere classified; Z59.7 Insufficient social insurance and welfare support
CPT/HCPCS: 36415; 71046; 74177; 80048; 80053; 81001; 82962; 83690; 83735; 84443; 85025; 87040; 87077; 87086; 87088; 87150; 87186; 96361; 96365; 96375; 99285; J0696; J1815; J2270; J2405; J3490; J7030

== ENCOUNTER 2020-06-21 09:56 | Emergency (ER) | payer SELFPAY ==
--- NOTE | 2020-06-21 11:19 | ER Document Report ---
ED Medical Screen (RME) - General Chief Complaint: Cough Stated Complaint: COUGH Time Seen by Provider: 06/21/20 11:15 TRAVEL OUTSIDE OF THE [place] IN LAST 30 DAYS: No - HPI Notes: 06/21/20 11:51 34-year-old male presents to the emergency room for complaints of coughing up clots of blood which started yesterday. Patient denies any trauma, is not any blood thinners. Smokes a pack a day for the last 18 years. Denies any fevers chills, nausea vomiting, diarrhea, abdominal pain, chest pain. Patient reports that he feels some pain in his chest only when coughing. Has not been around any cooperative positive people. Patient took pictures on his phone of what he brought up and they were clots of red bright red blood. Patient states he is coughing more more throughout the day. I have greeted and performed a rapid initial assessment of this patient. A comprehensive ED assessment and evaluation of the patient, analysis of test results and completion of the medical decision making process will be conducted by additional ED providers. PHYSICAL EXAMINATION: GENERAL: Well-appearing, well-nourished and in no acute distress. NECK: Normal range of motion CV: s1, s2 regular LUNGS: No respiratory distress. No chest wall pain on palpation - Related Data Allergies/Adverse Reactions: No Known Allergies Allergy (Verified 11/24/19 11:07) Past Medical History Renal/ Medical History: Denies: Hx Peritoneal Dialysis - Immunizations Immunizations up to date: Yes Hx Diphtheria, Pertussis, Tetanus Vaccination: Yes
[2020-06-21 12:33] LABS: ABSOLUTE BASOPHILS # (AUTO) 0.1 10^3/uL (0.0-0.2); ABSOLUTE EOSINOPHILS # (AUTO) 0.1 10^3/uL (0.0-0.6); ABSOLUTE LYMPHOCYTES (AUTO) 1.4 10^3/uL (0.5-4.7); ABSOLUTE MONOCYTES (AUTO) 0.5 10^3/uL (0.1-1.4); ABSOLUTE NEUT (AUTO) 6.5 10^3/uL (1.7-8.2); BASOPHILS % (AUTO) 0.6 % (0-2); EOSINOPHILS % (AUTO) 1.4 % (0-6); HEMATOCRIT 46.8 % (37.9-51.0); HEMOGLOBIN 16.8 g/dL (13.5-17.0); LYMPHOCYTES % (AUTO) 16.8 % (13-45); MEAN CORPUSCULAR HEMOGLOBIN 29.1 pg (27.0-33.4); MEAN CORPUSCULAR VOLUME 81 fl (80-97); MONOCYTES % (AUTO) 5.6 % (3-13); PLATELET COUNT 199 10^3/uL (150-450); RED BLOOD COUNT 5.79 10^6/uL (4.35-5.55); RED CELL DISTRIBUTION WIDTH 14.4 % (11.5-14.0); SEGMENTED NEUTROPHILS % (AUTO) 75.6 % (42-78); TOTAL CELLS COUNTED % (AUTO) 100 %; WHITE BLOOD COUNT 8.6 10^3/uL (4.0-10.5)
[2020-06-21 12:49] LABS: INTERNATIONAL RATION (INR) 1.06
[2020-06-21 12:52] LABS: ALBUMIN 4.5 g/dL (3.5-5.0); ALKALINE PHOSPHATASE 69 U/L (38-126); ANION GAP 5 (5-19); ASPARTATE AMINO TRANSFERASE 35 U/L (17-59); BILIRUBIN,TOTAL 3.1 mg/dL (0.2-1.3); BLOOD UREA NITROGEN 17 mg/dL (7-20); CARBON DIOXIDE 27 mmol/L (22-30); CHLORIDE 104 mmol/L (98-107); GLUCOSE 175 mg/dL (75-110); POTASSIUM 4.1 mmol/L (3.6-5.0); TOTAL PROTEIN 7.5 g/dL (6.3-8.2)
--- NOTE | 2020-06-21 14:05 | RADIOLOGY REPORT (SQ) ---
EXAM DESCRIPTION: CT CHEST WITH IMAGES COMPLETED DATE/TIME: 06/21/2020 1:50 pm REASON FOR STUDY: hemoptysis x 1 day COMPARISON: None. TECHNIQUE: CT scan of the chest performed using helical scanning technique with dynamic intravenous contrast injection. Images reviewed with lung, soft tissue and bone windows. Reconstructed coronal and sagittal MPR and MIP images reviewed. All images stored on PACS. All CT scanners at this facility use dose modulation, iterative reconstruction, and/or weight based d osing when appropriate to reduce radiation dose to as low as reasonably achievable (ALARA). [facility]: Dose Right [facility]: CareDose [facility]: Dose Right [facility]: Teradose 4D [facility]: [employer] CONTRAST TYPE AND DOSE: contrast/concentration: Isovue 350.00 mmol/ml; Total Contrast Delivered: 80. 0 ml; Total Saline Delivered: 55.0 ml RENAL FUNCTION: None required. The patient is less than 50 years old. RADIATION DOSE: CT Rad equipment meets quality standard of care and radiation dose reduction techniq ues were employed. CTDIvol: 21.1 mGy. DLP: 889 mGy-cm. . LIMITATIONS: None. FINDINGS: LUNGS AND PLEURA: No opacities, nodules, masses. No pneumothorax. No effusions. HILAR AND MEDIASTINAL STRUCTURES: Small prevascular, pretracheal and hilar nodes. Most likely reacti ve. HEART AND VASCULAR STRUCTURES: No aneurysm or dissection. No central pulmonary emboli. No pericardi al effusion. HARDWARE: None in the chest. UPPER ABDOMEN: No significant findings. Limited exam. THYROID AND OTHER SOFT TISSUES: No thyroid lesions. Bilateral gynecomastia. BONES: No significant finding. OTHER: No other significant finding. IMPRESSION: Nonspecific mediastinal and hilar adenopathy. Bilateral gynecomastia. TECHNICAL DOCUMENTATION: JOB ID: [id number] Quality ID # [id number]: Final reports with documentation of one or more dose reduction techniques (e.g., Au tomated exposure control, adjustment of the mA and/or kV according to patient size, use of iterative reconstruction technique) 2010 [employer]- All Rights Reserved Reading location - IP/workstation name: [email or web address]
--- NOTE | 2020-06-21 15:11 | EKG REPORT ---
SEVERITY:- ABNORMAL ECG - SINUS RHYTHM NONSPECIFIC T ABNORMALITIES, LATERAL LEADS BORDERLINE PROLONGED QT INTERVAL : Confirmed by: Chris Hauser MD 21-Jun-2020 15:10:33
[2020-06-21 16:42] VITALS: BP 190/125
== END 2020-06-21 16:52 | disposition left against medical advice (07) ==
LOC: ER 09:56
DX: R04.2 Hemoptysis (principal)
CPT/HCPCS: 36415; 71260; 80053; 83605; 85025; 85610; 85730; 93005; 93010; 99281

== ENCOUNTER 2020-08-13 02:31 | Emergency (ER) | payer SELFPAY | END 2020-08-13 04:00 | disposition left against medical advice (07) | LOC: ER 02:31 | DX: Z53.21 Procedure and treatment not carried out due to patient leaving prior to being seen by health care provider (principal) ==

== ENCOUNTER 2020-08-13 14:16 | Inpatient (IN) | payer SELFPAY ==
[2020-08-13] MEDS ORDERED: ASPIRIN 325 MG TABLET PO ONE (15:09)
--- NOTE | 2020-08-13 15:13 | ER Document Report ---
ED Medical Screen (RME) - General Chief Complaint: Swelling Stated Complaint: SWELLING Time Seen by Provider: 08/13/20 14:53 TRAVEL OUTSIDE OF THE [place] IN LAST 30 DAYS: No - HPI Notes: 08/13/20 15:10 35-year-old male with history of diabetes, hypertension, bronchitis to the emergency department with complaints of swelling to bilateral legs, abdomen with associated shortness of breath especially with exertion, and midsternal chest pain that is been going on for about 2 days. He denies any nausea vomiting. He is actively diaphoretic and triage. He states he has been sweating with these symptoms for the past day. He states that his father has had a heart attack before but he is not exactly sure what age. His father is 54. He is uncontrolled in his diabetes and hypertension. He does not see a physician. He is states that he has tried to set up a follow-up appointment but "just does not feel good on the day of the appointment and does not go". He is a smoker. He associated his symptoms with the fall 2 days ago into a table however he states it really did not hurt when he fell and he and his friend were joking around about it. He states the next day is when he saw the swelling began. He has had a history of leg swelling in the past. He states he was admitted for this and was diagnosed with bronchitis. As stated above he is sweating actively in triage with chest pressure and is actively short of breath as well. I advised charge of the patient and he was moved directly to bed 18. I also spoke with my attending Dr. Saunders about the patient and she is aware. An EKG is being done currently. I performed a brief medical screening exam on the patient determined that the patient needs further evaluation and management by main side provider. I have placed initial orders to help expedite care. - Related Data Allergies/Adverse Reactions: No Known Allergies Allergy (Verified 06/21/20 11:52) Past Medical History - Past Medical History Cardiac Medical History: Reports: Hx Hypercholesterolemia, Hx Hypertension Endocrine Medical History: Reports: Hx Diabetes Mellitus Type 2 Renal/ Medical History: Denies: Hx Peritoneal Dialysis - Immunizations Immunizations up to date: Yes Hx Diphtheria, Pertussis, Tetanus Vaccination: Yes Physical Exam - Vital signs Vitals: Temp Pulse Resp BP Pulse Ox 98.2 F 112 H 18 166/107 H 96 08/13/20 14:20 08/13/20 14:20 08/13/20 14:20 08/13/20 14:20 08/13/20 14:20 Course - Vital Signs Vital signs: Temp Pulse Resp BP Pulse Ox 98.2 F 112 H 18 166/107 H 96 08/13/20 14:20 08/13/20 14:20 08/13/20 14:20 08/13/20 14:20 08/13/20 14:20
[2020-08-13 15:49] LABS: ABSOLUTE EOSINOPHILS # (AUTO) 0.1 10^3/uL (0.0-0.6); ABSOLUTE LYMPHOCYTES (AUTO) 1.5 10^3/uL (0.5-4.7); ABSOLUTE MONOCYTES (AUTO) 0.5 10^3/uL (0.1-1.4); ABSOLUTE NEUT (AUTO) 7.5 10^3/uL (1.7-8.2); BASOPHILS % (AUTO) 0.4 % (0-2); EOSINOPHILS % (AUTO) 1.3 % (0-6); HEMOGLOBIN 15.9 g/dL (13.5-17.0); LYMPHOCYTES % (AUTO) 15.4 % (13-45); MEAN CORPUSCULAR HEMOGLOBIN 27.9 pg (27.0-33.4); MEAN CORPUSCULAR HGB CONC 35.4 g/dL (32.0-36.0); MEAN CORPUSCULAR VOLUME 79 fl (80-97); MONOCYTES % (AUTO) 5.6 % (3-13); PLATELET COUNT 202 10^3/uL (150-450); SEGMENTED NEUTROPHILS % (AUTO) 77.3 % (42-78); TOTAL CELLS COUNTED % (AUTO) 100 %; WHITE BLOOD COUNT 9.7 10^3/uL (4.0-10.5)
[2020-08-13 16:03] LABS: INTERNATIONAL RATION (INR) 1.18; PROTHROMBIN TIME 15.2 SEC (11.4-15.4)
[2020-08-13 16:04] LABS: PARTIAL THROMBOPLASTIN TIME 27.7 SEC (23.5-35.8)
[2020-08-13 16:08] LABS: ALBUMIN 4.2 g/dL (3.5-5.0); ALKALINE PHOSPHATASE 69 U/L (38-126); ANION GAP 10 (5-19); ASPARTATE AMINO TRANSFERASE 37 U/L (17-59); BILIRUBIN,DIRECT 0.5 mg/dL (0.0-0.4); BILIRUBIN,TOTAL 3.4 mg/dL (0.2-1.3); BLOOD UREA NITROGEN 20 mg/dL (7-20); CALCIUM 9.2 mg/dL (8.4-10.2); CARBON DIOXIDE 26 mmol/L (22-30); CHLORIDE 102 mmol/L (98-107); GLUCOSE 184 mg/dL (75-110); POTASSIUM 4.2 mmol/L (3.6-5.0); TOTAL PROTEIN 6.9 g/dL (6.3-8.2)
[2020-08-13 16:18] LABS: TROPONIN I 0.018 ng/mL
[2020-08-13] MEDS ORDERED: CLONIDINE HCL 0.1 MG TABLET PO ONE (16:28)
--- NOTE | 2020-08-13 16:39 | RADIOLOGY REPORT (SQ) ---
EXAM DESCRIPTION: CHEST SINGLE VIEW IMAGES COMPLETED DATE/TIME: 08/13/2020 4:23 pm REASON FOR STUDY: chest pain COMPARISON: 11/24/2019 EXAM PARAMETERS: NUMBER OF VIEWS: One view. TECHNIQUE: Single frontal radiographic view of the chest acquired. RADIATION DOSE: NA LIMITATIONS: None. FINDINGS: LUNGS AND PLEURA: Subsegmental primarily linear area density in the lung bases most likely atelectasis. No infiltrate. MEDIASTINUM AND HILAR STRUCTURES: No masses. Contour normal. HEART AND VASCULAR STRUCTURES: Heart normal in size. Normal vasculature. BONES: No acute findings. HARDWARE: None in the chest. OTHER: No other significant finding. IMPRESSION: Atelectasis. TECHNICAL DOCUMENTATION: JOB ID: [id number] 2010 [employer]- All Rights Reserved Reading location - IP/workstation name: [email or web address]
--- NOTE | 2020-08-13 17:17 | RADIOLOGY REPORT (SQ) ---
EXAM DESCRIPTION: CTA CHEST IMAGES COMPLETED DATE/TIME: 08/13/2020 4:56 pm REASON FOR STUDY: cp/sob COMPARISON: None. TECHNIQUE: CT scan of the chest performed using helical scanning technique with dynamic intravenous contrast injection. Images reviewed with lung, soft tissue and bone windows. Reconstructed coronal and sagittal MPR images reviewed. Additional 3 dimensional post-processing performed to develop Maximal Intensity Projection images (MS P). All images stored on PACS. All CT scanners at this facility use dose modulation, iterative reconstruction, and/or weight based d osing when appropriate to reduce radiation dose to as low as reasonably achievable (ALARA). [facility]: Dose Right [facility]: CareDose [facility]: Dose Right [facility]: Teradose 4D [facility]: [employer] CONTRAST TYPE AND DOSE: contrast/concentration: Isovue 350.00 mmol/ml; Total Contrast Delivered: 73. 0 ml; Total Saline Delivered: 66.0 ml Contrast bolus optimized for the pulmonary arteries. Not diagnostic for the aorta. RENAL FUNCTION: BUN 20; creatinine 1.07 RADIATION DOSE: CT Rad equipment meets quality standard of care and radiation dose reduction techniq ues were employed. CTDIvol: 19.8 - 40.2 mGy. DLP: 1520 mGy-cm. . LIMITATIONS: None. FINDINGS: LUNGS AND PLEURA: Subtle multifocal ground-glass opacities at the lung bases may be due in part to atelectasis. Small bilateral pleural effusions are present. No pneumothorax. AORTA AND GREAT VESSELS: No aneurysm. Contrast bolus not optimized for the aorta. HEART: Cardiomegaly. No pericardial fusion. No significant coronary artery calcifications. PULMONARY ARTERIES: No emboli visualized in the main pulmonary arteries or the segmental branches. HILAR AND MEDIASTINAL STRUCTURES: Scattered mediastinal lymph nodes are nonspecific finding. HARDWARE: None in the chest. UPPER ABDOMEN: No significant findings. Limited exam. THYROID AND OTHER SOFT TISSUES: Bilateral gynecomastia. BONES: No acute or significant finding. 3D MIPS: Confirm above findings. OTHER: No other significant finding. IMPRESSION: 1. No central or segmental pulmonary embolus. 2. Small bilateral pleural effusions with bibasilar ground-glass opacities may represent developing multifocal airspace process. 3. Other chronic and incidental findings as detailed above. COMMENT: Quality ID # [id number]: Final reports with documentation of one or more dose reduction techniques (e.g., Automated exposure control, adjustment of the mA and/or kV according to patient size, use of iterative reconstruction technique) TECHNICAL DOCUMENTATION: JOB ID: [id number] 2010 [employer]- All Rights Reserved Reading location - IP/workstation name: [email or web address]
--- NOTE | 2020-08-13 17:49 | ER Document Report ---
ED General - General Chief Complaint: Shortness Of Breath Stated Complaint: SWELLING Time Seen by Provider: 08/13/20 14:53 Mode of Arrival: Ambulatory Information source: Patient TRAVEL OUTSIDE OF THE [place] IN LAST 30 DAYS: No - HPI Notes: Patient arrives complaining of shortness of breath and chest tightness. He states he has had this on and off over the last year. However it is been much worse the last 3 days. He states he came here yesterday but did not went away to went back home. He then called the ambulance today because he was "tired of it". Patient denies any cough or cold symptoms. He states he does smoke daily. He denies illicit drug use other than marijuana. He denies any previous history of cardiac disease or evaluations. Patient states he has been diagnosed with high blood pressure in the past but has not taken any medications. He also states he does not have a primary care physician. Patient states that the chest pressure was central and was a "tight" sensation. It appeared to have been moderate. Nothing appeared to make it better or worse. It was accompanied by shortness of breath and the shortness of breath is worse with exertion. There is no significant radiation of the symptom. He has had some sweating. No nausea or vomiting. - Related Data Allergies/Adverse Reactions: No Known Allergies Allergy (Verified 06/21/20 11:52) Past Medical History - General Information source: Patient - Social History Smoking Status: Current Every Day Smoker Chew tobacco use (# tins/day): No Frequency of alcohol use: Rare Drug Abuse: Marijuana Family History: DM, Hypertension - Past Medical History Cardiac Medical History: Reports: Hx Hypercholesterolemia, Hx Hypertension Endocrine Medical History: Reports: Hx Diabetes Mellitus Type 2 Renal/ Medical History: Denies: Hx Peritoneal Dialysis - Immunizations Immunizations up to date: Yes Hx Diphtheria, Pertussis, Tetanus Vaccination: Yes Review of Systems - Review of Systems Constitutional: denies: Chills, Fever Cardiovascular: Chest pain. denies: Palpitations Respiratory: Short of breath Gastrointestinal: denies: Vomiting -: Yes All other systems reviewed and negative Physical Exam - Vital signs Vitals: Temp Pulse Resp BP Pulse Ox 98.2 F 112 H 18 166/107 H 96 08/13/20 14:20 08/13/20 14:20 08/13/20 14:20 08/13/20 14:20 08/13/20 14:20 Interpretation: Hypertensive, Tachycardic - General General appearance: Appears well, Alert - HEENT Head: Normocephalic, Atraumatic Eyes: Normal Pupils: PERRL - Respiratory Respiratory status: No respiratory distress Chest status: Nontender Breath sounds: Decreased air movement - Bilateral Chest palpation: Normal - Cardiovascular Rhythm: Tachycardia Heart sounds: Normal auscultation Murmur: No - Abdominal Inspection: Morbidly Obese Distension: No distension Bowel sounds: Normal Tenderness: Nontender Organomegaly: No organomegaly - Back Back: Normal, Nontender - Extremities General upper extremity: Normal inspection, Nontender, Normal color, Normal ROM, Normal temperature General lower extremity: Normal inspection, Nontender, Edema - Bilateral, Normal color, Normal ROM, Normal temperature, Normal weight bearing. No: Robert's sign - Neurological Neuro grossly intact: Yes Cognition: Normal Orientation: AAOx4 [place] Coma Scale Eye Opening: Spontaneous [place] Coma Scale Verbal: Oriented [place] Coma Scale Motor: Obeys Commands [place] Coma Scale Total: 15 Speech: Normal Motor strength normal: LUE, RUE, LLE, RLE Sensory: Normal - Psychological Associated symptoms: Normal affect, Normal mood - Skin Skin Temperature: Warm Skin Moisture: Dry Skin Color: Normal Course - Re-evaluation Re-evalutation: 08/13/20 17:45 Patient presents with shortness of breath and chest tightness. Patient is tachycardic and hypertensive on arrival. He denies illicit drug use. Clinical picture seems to be someone who has new onset congestive heart failure most likely secondary to chronically uncontrolled hypertension. I recommended the patient that he be admitted to the hospital for further therapy and evaluation. 08/13/20 18:06 - Vital Signs Vital signs: Temp Pulse Resp BP Pulse Ox 98.2 F 112 H 19 213/157 H 97 08/13/20 14:20 08/13/20 14:20 08/13/20 15:10 08/13/20 15:10 08/13/20 15:10 - Laboratory Result Diagrams: 08/13/20 15:25 08/13/20 15:25 Laboratory results interpreted by me: 08/13/20 08/13/20 08/13/20 15:25 15:25 15:25 RBC 5.70 H MCV 79 L RDW 15.0 H Glucose 184 H Magnesium 2.5 H Total Bilirubin 3.4 H Direct Bilirubin 0.5 H NT-Pro-B Natriuret Pep 1560 H - Diagnostic Test Radiology reviewed: Image reviewed, Reports reviewed - EKG Interpretation by Me EKG shows normal: Sinus rhythm Rate: Tachycardia - 111 Rhythm: NSR [place]/QRS: Left axis deviation Critical Care Note - Critical Care Note Total time excluding time spent on procedures (mins): 50 Comments: Approximately 50 minutes critical care time were spent on this patient. This included multiple reassessments. And included talking to multiple consultants. Included reviewing old records. Include reviewing imaging and laboratory values. Discharge - Discharge Clinical Impression: Morbid obesity with BMI of 45.0-49.9, adult, Tobacco dependence due to cigarettes, Hyperglycemia, New onset of congestive heart failure, Uncontrolled hypertension Condition: Serious Disposition: ADMITTED INPATIENT Admitting Provider: Selina (Hospitalist) Unit Admitted: Telemetry
[2020-08-13] MEDS ORDERED: METOPROLOL SUCCINATE 25 MG TAB.SR.24H PO ONE (18:39)
[2020-08-13] MEDS ORDERED: LISINOPRIL 10 MG TABLET PO ONE (18:39)
[2020-08-13] MEDS ORDERED: FUROSEMIDE INJ/PF 40 MG/4 ML SDV IV ONE (18:39)
[2020-08-13] MEDS ORDERED: MAG HYDROX/AL HYDROX/SIMETH SUSP 30 ML UDCUP PO PRN (18:54)
[2020-08-13] MEDS ORDERED: MAGNESIUM HYDROXIDE SUSP 30 ML UDCUP PO PRN (18:54)
[2020-08-13] MEDS ORDERED: ACETAMINOPHEN 325 MG TABLET PO PRN (18:54)
[2020-08-13] MEDS ORDERED: PROMETHAZINE HCL 25 MG TABLET PO PRN (18:54)
[2020-08-13] MEDS ORDERED: GLUCAGON,HUMAN RECOMB 1 MG INJ IM PRN (19:02)
[2020-08-13] MEDS ORDERED: DEXTROSE 40% GEL 15 GM TUBE PO PRN ×2 (19:02)
[2020-08-13] MEDS ORDERED: DEXTROSE 50%-WATER 25 GM/50 ML DISP.SYRIN IV PRN ×2 (19:02)
--- NOTE | 2020-08-13 19:03 | EKG REPORT ---
SEVERITY:- ABNORMAL ECG - SINUS TACHYCARDIA LEFT ATRIAL ABNORMALITY BORDERLINE LEFT AXIS DEVIATION ABNRM R PROG, CONSIDER ASMI OR LEAD PLACEMENT : Confirmed by: Chris Hauser MD 13-Aug-2020 19:02:37
[2020-08-13] MEDS ORDERED: NITROGLYCERIN 0.4 MG/TAB 25 TAB/BOTTLE SL PRN (19:10)
[2020-08-13] MEDS ORDERED: HYDRALAZINE HCL INJ/PF 20 MG/1 ML SDV IV PRN ×2 (19:11→23:19)
[2020-08-13] MEDS ORDERED: MORPHINE SULFATE 10 MG/ML INJ IV PRN (19:31)
--- NOTE | 2020-08-13 19:35 | PDOC H&P ---
History of Present Illness Admission Date/PCP: 08/13/20 18:30 Patient complains of: Hypertensive emergency, chest tightness, shortness of breath and leg swelling History of Present Illness: LOC BRAVO is a 35 year old male known to me from a November admission for pyelonephritis. At that time there was a new diagnosis of diabetes mellitus. He has a history of noncompliance. He is currently not on any medications. He states that approximately 4 days ago he began to notice swelling of his legs with increasing shortness of breath. He also reports a chest tightness. He denies diaphoresis, nausea, vomiting or palpitations. The chest discomfort does not radiate. It is substernal in nature. At this time he states it has resolved. He has markedly elevated systolic and diastolic blood pressures. He has 1+ edema. BNP is slightly elevated and the first troponin is normal. The patient consider leaving AGAINST MEDICAL ADVICE but change his mind. He will be admitted to [facility]. Will monitor on telemetry. I initiated antihypertensive medications including beta-bartolome, ELHAM inhibitor and diuretic. PRN hydralazine is available as well. We will try and lower his blood pressure steadily but not too quickly. For his diabetes he will have Accu-Cheks before meals and at bedtime as well as insulin sliding scale. Sublingual nitroglycerin will be available for any recurrent chest discomfort. Past Medical History Cardiac Medical History: Reports: Hyperlipidema, Hypertension Endocrine Medical History: Reports: Diabetes Mellitus Type 2 GI Medical History: Reports: Other - Hyperbilirubinemia Psychiatric Medical History: Reports: Tobacco Dependency, Other - Occasional marijuana use Traumatic Medical History: Reports: None Hematology: Denies: Anemia, Bleeding Tendencies Infectious Medical History: Denies: Hepatitis B Past Surgical History Past Surgical History: Reports: None Social History Information Source: Patient, [facility] Records Lives with: Alone Smoking Status: Current Every Day Smoker Cigarettes Packs Per Day: 1.5 Electronic Cigarette use?: No Frequency of Alcohol Use: Rare Hx Recreational Drug Use: Yes Drugs: Marijuana Hx Prescription Drug Abuse: No - Advance Directive Resuscitation Status: Full Code Surrogate healthcare decision maker:: His father Mu Bravo would be the designated decision maker. Family History Family History: DM, Hypertension Parental Family History Reviewed: Yes Children Family History Reviewed: NA Sibling(s) Family History Reviewed.: NA Medication/Allergy Allergies/Adverse Reactions: No Known Allergies Allergy (Verified 06/21/20 11:52) Review of Systems All systems: reviewed and no additional remarkable complaints except as stated Cardiovascular: PRESENT: chest pain, dyspnea on exertion, edema Physical Exam Vital Signs: Temp Pulse Resp BP Pulse Ox 98.2 F 112 H 19 213/157 H 97 08/13/20 14:20 08/13/20 14:20 08/13/20 15:10 08/13/20 15:10 08/13/20 15:10 Intake & Output 08/12/20 08/13/20 08/14/20 06:59 06:59 06:59 Weight 163.1 kg General appearance: PRESENT: cooperative, mild distress, morbidly obese, well- developed, well-nourished Head exam: PRESENT: atraumatic, normocephalic Eye exam: PRESENT: conjunctiva pink, EOMI, PERRLA. ABSENT: conjunctival injection, nystagmus Ear exam: PRESENT: normal external ear exam. ABSENT: bleeding, drainage Mouth exam: PRESENT: dry mucosa, tongue midline Teeth exam: PRESENT: poor dentation Throat exam: ABSENT: post pharyngeal erythema, tonsillar erythema, tonsillar exudate Neck exam: PRESENT: full ROM. ABSENT: carotid bruit, JVD, lymphadenopathy, tracheostomy Respiratory exam: PRESENT: rales - Bases, symmetrical, unlabored. ABSENT: accessory muscle use, prolonged expiratory phas, rhonchi, tachypnea, wheezes Cardiovascular exam: PRESENT: +S1, +S2, tachycardia, other - Possible S4. ABSENT: bradycardia, diastolic murmur, systolic murmur Pulses: PRESENT: normal radial pulses, normal dorsalis pedis pul GI/Abdominal exam: PRESENT: distended, normal bowel sounds, soft, other - Protuberant abdomen. ABSENT: guarding, tenderness Rectal exam: PRESENT: deferred Gentrourinary exam: ABSENT: indwelling catheter Extremities exam: PRESENT: pedal edema, +1 edema. ABSENT: calf tenderness, joint swelling, tenderness Musculoskeletal exam: PRESENT: ambulatory, full ROM, normal inspection. ABSENT: deformity, dislocation, tenderness Neurological exam: PRESENT: alert, awake, oriented to person, oriented to place, oriented to time, oriented to situation, CN II-XII grossly intact. ABSENT: altered, motor sensory deficit Psychiatric exam: PRESENT: appropriate affect. ABSENT: agitated, anxious Focused psych exam: ABSENT: delusional, paranoid, restlessness Skin exam: PRESENT: dry, normal color, warm. ABSENT: erythema, rash Results Laboratory Results: 08/13/20 15:25 08/13/20 15:25 08/13/20 08/13/20 15:25 15:25 WBC 9.7 RBC 5.70 H Hgb 15.9 Hct 45.0 MCV 79 L MCH 27.9 MCHC 35.4 RDW 15.0 H Plt Count 202 Seg Neutrophils % 77.3 Sodium 137.5 Potassium 4.2 Chloride 102 Carbon Dioxide 26 Anion Gap 10 BUN 20 Creatinine 1.07 Est GFR ( Amer) > 60 Glucose 184 H Calcium 9.2 Magnesium 2.5 H Total Bilirubin 3.4 H AST 37 Alkaline Phosphatase 69 Total Protein 6.9 Albumin 4.2 08/13/20 15:25 Troponin I 0.018 NT-Pro-B Natriuret Pep 1560 H Impressions: Chest X-Ray 08/13/20 15:10 IMPRESSION: Atelectasis. Chest/Abdomen CTA 08/13/20 16:25 IMPRESSION: 1. No central or segmental pulmonary embolus. 2. Small bilateral pleural effusions with bibasilar ground-glass opacities may represent developing multifocal airspace process. 3. Other chronic and incidental findings as detailed above. Assessment and Plan - Diagnosis (1) Hypertensive emergency Is this a current diagnosis for this admission?: Yes (2) Chest pain in adult Is this a current diagnosis for this admission?: Yes (3) New onset of congestive heart failure Is this a current diagnosis for this admission?: Yes (4) Hyperglycemia due to type 2 diabetes mellitus Qualifiers: Diabetes mellitus emt intermediate insulin use: without assisted use Qualified Code(s): E11.65 - Type 2 diabetes mellitus with hyperglycemia Is this a current diagnosis for this admission?: Yes (5) Morbid obesity with BMI of 45.0-49.9, adult Is this a current diagnosis for this admission?: Yes (6) Tobacco dependence due to cigarettes Is this a current diagnosis for this admission?: Yes (7) Hyperbilirubinemia Is this a current diagnosis for this admission?: Yes (8) Hepatic steatosis Is this a current diagnosis for this admission?: Yes - Plan Summary Summary: 08/13/2020 patient admitted to the hospitalist service Hypertensive emergency with chest pain-we will utilize furosemide, lisinopril and metoprolol initially. He will have hydralazine available as needed. We will try and lower his pressure slowly while treating his tachycardia and possible new heart failure. New onset congestive heart failure-BNP is slightly elevated. He is not in profound heart failure by any means. Medications as above. Will check echocardiogram and serial troponins. Sublingual nitroglycerin will also be available. Hyperglycemia due to diabetes-we will start with Accu-Cheks and sliding scale coverage at mealtime and at bedtime. With his diabetes and hypertension I have initiated lisinopril and atorvastatin. Low fat low sodium diet Hyperbilirubinemia-patient had elevated total bilirubin in November. CT scan in November showed hepato-steatosis. Will monitor. Hepatic steatosis-would benefit from weight loss and lifestyle modification. Better control of diabetes would also help. Morbid obesity-continue to encourage lifestyle modification Nicotine dependence due to cigarettes-continue to encourage cessation. - Time Time Spent with patient: 35 or more minutes Smoking Cessation Education: 3 to 10 minutes Medications reviewed and adjusted accordingly: Yes Anticipated Discharge Disposition: Home, Self Care Anticipated Discharge Timeframe: Within 96 hours - Inpatient Certification Based on my medical assessment, after consideration of the patient's c omorbidities, presenting symptoms, or acuity I expect that the services needed warrant INPATIENT care.: Yes I certify that my determination is in accordance with my understanding of Medicare's requirements for reasonable and necessary INPATIENT services [42 CFR 412.3e].: Yes Medical Necessity: Need Close Monitoring Due to Risk of Patient Decompensation, Need For Continuous Telemetry Monitoring, Need for Pain Control, Other - Accu-Cheks and insulin dosing Post Hospital Care: D/C or Transfer Summary
[2020-08-13] MEDS: INSULIN REG, HUMAN 100 UNIT/ML 3 ML VIAL (PYX) SUBCUT SCH (21:25)
[2020-08-13] MEDS ORDERED: ATORVASTATIN CALCIUM 40 MG TABLET PO SCH (22:00)
[2020-08-13] MEDS ORDERED: ASPIRIN 81 MG TABLET, ENT COATED PO SCH (22:00)
[2020-08-13] MEDS ORDERED: NITROGLYCERIN 2% OINTMENT 1 GM PACKET TP PRN (23:19)
[2020-08-13] MEDS ORDERED: METOPROLOL TARTRATE PF/INJ 5 MG/5 ML SDV IV PRN (23:21)
[2020-08-14 03:37] LABS: ALBUMIN 4.5 g/dL (3.5-5.0); ALKALINE PHOSPHATASE 67 U/L (38-126); ANION GAP 10 (5-19); ASPARTATE AMINO TRANSFERASE 36 U/L (17-59); BILIRUBIN,DIRECT 0.6 mg/dL (0.0-0.4); BILIRUBIN,TOTAL 4.1 mg/dL (0.2-1.3); BLOOD UREA NITROGEN 16 mg/dL (7-20); CALCIUM 9.4 mg/dL (8.4-10.2); CARBON DIOXIDE 28 mmol/L (22-30); CHLORIDE 103 mmol/L (98-107); CHOLESTEROL 148.43 mg/dL (0-200); GLUCOSE 177 mg/dL (75-110); POTASSIUM 3.9 mmol/L (3.6-5.0); TOTAL PROTEIN 7.5 g/dL (6.3-8.2); TRIGLYCERIDES 157 mg/dL (<150)
[2020-08-14 03:48] LABS: DIRECT LDL 104 mg/dL (<100)
[2020-08-14 03:49] LABS: VLDL CHOLESTEROL 31.4 mg/dL (10-31)
[2020-08-14] MEDS ORDERED: PANTOPRAZOLE SODIUM 20 MG TABLET.DR PO SCH (06:00)
[2020-08-14] MEDS: INSULIN REG, HUMAN 100 UNIT/ML 3 ML VIAL (PYX) SUBCUT SCH (08:11)
[2020-08-14] MEDS ORDERED: LISINOPRIL 10 MG TABLET PO SCH (10:00)
[2020-08-14] MEDS ORDERED: NICOTINE 21 MG/24 HR PATCH.TD24 TD SCH (10:00)
[2020-08-14] MEDS ORDERED: ENOXAPARIN SODIUM INJ 40 MG/0.4 ML DISP.SYRIN SUBCUT SCH (10:00)
[2020-08-14] MEDS ORDERED: METOPROLOL SUCCINATE 50 MG TAB.SR.24H PO SCH (10:00)
[2020-08-14] MEDS ORDERED: FUROSEMIDE INJ/PF 20 MG/2 ML SDV IV SCH (10:00)
--- NOTE | 2020-08-14 12:31 | XCELERA REPORT ---
[address] [address] Transthoracic Echocardiogram Report Name: LOC BRAVO Age: 35 yrs Gender: Male : 1985 Patient Status: Inpatient Patient Location: [address] [place] [address] Study Date: 08/14/2020 10:50 AM Height: 72 in Weight: 359 lb BSA: 2.7 m2 Procedure: A two-dimensional transthoracic echocardiogram with color flow and Doppler was performed. Study Quality: Fair. Reason For Study: hypertensive emergency, heart failure History: hypertensive emergency, heart failure. Ordering Physician: EMMANUEL RAPP Performed By: Zully Tellez Interpretation Summary The left ventricle is borderline dilated. There is moderate to severe concentric left ventricular hypertrophy. LV EF is 45% Left ventricular systolic function is moderately reduced. By tissue dopplers. The right ventricle is not well visualized secondary to technical limitations The right atrium is mildly dilated. The left atrium is moderately dilated. There is no evidence of mitral valve prolapse. There is no vegetation seen on the mitral valve. There is no mitral valve stenosis. There is a trace amount of mitral regurgitation There is no aortic valvular vegetation. There is no aortic valve stenosis No aortic regurgitation is present. There is no tricuspid stenosis. No tricuspid regurgitation. Tricuspid regurgitation jet envelope not well defined to measure RV systolic pressure accurately. There is no pulmonic valvular stenosis. There is no pulmonic valvular regurgitation. The aortic root is normal size. The inferior vena cava appeared dilated and decreased < 50% with respiration (RAP 15-20 mmHg) There is no pericardial effusion. MMode/2D Measurements & Calculations RVDd: 3.2 cm LVIDd: 5.8 cm FS: 22.8 % EPSS: 1.5 cm IVSd: 1.7 cm LVIDs: 4.4 cm EDV(Teich): 163.9 ml LVPWd: 1.7 cm ESV(Teich): 89.9 ml EF(Teich): 45.2 % Ao root diam: 2.8 cm Ao root area: 6.3 cm2 LA dimension: 5.0 cm Doppler Measurements & Calculations MV E max francine: MV P1/2t max francine: Ao V2 max: LV V1 max P.2 cm/sec 98.2 cm/sec 100.8 cm/sec 2.6 mmHg MV A max francine: MV P1/2t: 28.4 msec Ao max PG: LV V1 max: 44.4 cm/sec MVA(P1/2t): 7.7 cm2 4.1 mmHg 80.5 cm/sec MV E/A: 2.2 MV dec slope: 1012 cm/sec2 MV dec time: 0.11 sec PA V2 max: MV P1/2t-pr_phl: 69.6 cm/sec 28.4 msec PA max P.9 mmHg Left Ventricle The left ventricle is borderline dilated. There is moderate to severe concentric left ventricular hypertrophy. LV EF is 45%. Left ventricular systolic function is moderately reduced. Doppler measurements suggest impaired left ventricular relaxation, which is associated with grade I/IV or mild diastolic dysfunction. By tissue dopplers. Right Ventricle The right ventricle is not well visualized secondary to technical limitations. Atria The right atrium is mildly dilated. The left atrium is moderately dilated. Mitral Valve There is no evidence of mitral valve prolapse. There is no vegetation seen on the mitral valve. There is no mitral valve stenosis. There is a trace amount of mitral regurgitation. Aortic Valve There is no aortic valvular vegetation. There is no aortic valve stenosis. No aortic regurgitation is present. Tricuspid Valve There is no tricuspid stenosis. No tricuspid regurgitation. Tricuspid regurgitation jet envelope not well defined to measure RV systolic pressure accurately. Pulmonic Valve There is no pulmonic valvular stenosis. There is no pulmonic valvular regurgitation. Great Vessels The aortic root is normal size. The inferior vena cava appeared dilated and decreased < 50% with respiration (RAP 15-20 mmHg). Effusions There is no pericardial effusion. : EMMANUEL RAPP Lakshmi
--- NOTE | 2020-08-14 13:12 | PDOC DISCHARGE SUMMARY ---
Impression - Admit/DC Date/PCP Admission Date/Primary Care Provider: 08/13/20 18:30 Discharge Date: 08/14/20 - Discharge Diagnosis (1) Hypertensive emergency Is this a current diagnosis for this admission?: Yes (2) Chest pain in adult Is this a current diagnosis for this admission?: Yes (3) Hyperglycemia due to type 2 diabetes mellitus Is this a current diagnosis for this admission?: Yes (4) Morbid obesity with BMI of 45.0-49.9, adult Is this a current diagnosis for this admission?: Yes (5) Tobacco dependence due to cigarettes Is this a current diagnosis for this admission?: Yes (6) Hyperbilirubinemia Is this a current diagnosis for this admission?: Yes (7) Hepatic steatosis Is this a current diagnosis for this admission?: Yes (8) Acute systolic heart failure Is this a current diagnosis for this admission?: Yes - Assessment Summary: 08/13/2020 patient admitted to the hospitalist service Hypertensive emergency with chest pain-we will utilize furosemide, lisinopril and metoprolol initially. He will have hydralazine available as needed. We will try and lower his pressure slowly while treating his tachycardia and possible new heart failure. New onset congestive heart failure-BNP is slightly elevated. He is not in profound heart failure by any means. Medications as above. Will check echocardiogram and serial troponins. Sublingual nitroglycerin will also be available. Hyperglycemia due to diabetes-we will start with Accu-Cheks and sliding scale coverage at mealtime and at bedtime. With his diabetes and hypertension I have initiated lisinopril and atorvastatin. Low fat low sodium diet Hyperbilirubinemia-patient had elevated total bilirubin in November. CT scan in November showed hepato-steatosis. Will monitor. Hepatic steatosis-would benefit from weight loss and lifestyle modification. Better control of diabetes would also help. Morbid obesity-continue to encourage lifestyle modification Nicotine dependence due to cigarettes-continue to encourage cessation. - Additional Information Resuscitation Status: Full Code Discharge Diet: Cardiac, Diabetic Discharge Activity: Activity As Tolerated, Balance Activity w/Rest, Weigh Daily Referrals: DONOVAN ASHFORD MD [HONORARY] - (Called left message 08/14/20 @ [phone] to call back with an appointment. Wasn't able to speak to a person.myh) Prescriptions: Furosemide [Lasix 20 mg Tablet] 20 mg PO QAM #30 tablet Atorvastatin Calcium [Lipitor 40 mg Tablet] 40 mg PO QHS #30 tablet Lisinopril 20 mg PO DAILY #30 tablet Metformin HCl [Metformin HCl ER] 500 mg PO DAILY #30 tab.er.24h Metoprolol Succinate [Toprol Xl 50 mg Tab.sr] 50 mg PO DAILY 30 Days #30 tab.sr.24h Home Medications: Aspirin [Ecotrin 81 mg EC Tablet] 81 mg PO QHS tabec 08/14/20 Atorvastatin Calcium [Lipitor 40 mg Tablet] 40 mg PO QHS #30 tablet 08/14/20 Furosemide [Lasix 20 mg Tablet] 20 mg PO QAM #30 tablet 08/14/20 Lisinopril 20 mg PO DAILY #30 tablet 08/14/20 Metformin HCl [Metformin HCl ER] 500 mg PO DAILY #30 tab.er.24h 08/14/20 Metoprolol Succinate [Toprol Xl 50 mg Tab.sr] 50 mg PO DAILY 30 Days #30 tab.sr.24h 08/14/20 Nicotine [Nicoderm 21 mg/24 Hr Transderm Patch] 1 each TD DAILY patch.td24 08/14/20 History of Present Illiness History of Present Illness: LOC BRAVO is a 35 year old male known to me from a November admission for pyelonephritis. At that time there was a new diagnosis of diabetes mellitus. He has a history of noncompliance. He is currently not on any medications. He states that approximately 4 days ago he began to notice swelling of his legs with increasing shortness of breath. He also reports a chest tightness. He denies diaphoresis, nausea, vomiting or palpitations. The chest discomfort does not radiate. It is substernal in nature. At this time he states it has resolved. He has markedly elevated systolic and diastolic blood pressures. He has 1+ edema. BNP is slightly elevated and the first troponin is normal. The patient consider leaving AGAINST MEDICAL ADVICE but change his mind. He will be admitted to [facility]. Will monitor on telemetry. I initiated antihypertensive medications including beta-bartolome, ELHAM inhibitor and diuretic. PRN hydralazine is available as well. We will try and lower his blood pressure steadily but not too quickly. For his diabetes he will have Accu-Cheks before meals and at bedtime as well as insulin sliding scale. Sublingual nitroglycerin will be available for any recurrent chest discomfort. Hospital Course Hospital Course: Unremarkable hospital course. The patient in fact was feeling much better today. He is blood pressure is significantly improved but not too much of a decrease from prior to admission. I believe his medications will take approximately 7 to 14 days to mature with regard to total effect on blood pressure. He is anxious for home. Echocardiogram did show an ejection fraction of 45% and I did discuss medication use with cardiology. He will be seen as an outpatient and will need an appointment at [facility]. Physical Exam Vital Signs: Temp Pulse Resp BP Pulse Ox 97.5 F 91 18 161/98 H 96 08/14/20 11:47 08/14/20 11:47 08/14/20 11:47 08/14/20 11:47 08/14/20 11:47 Intake & Output 08/13/20 08/14/20 08/15/20 06:59 06:59 06:59 Intake Total 260 Balance 260 Weight 150.4 kg General appearance: PRESENT: no acute distress, cooperative, morbidly obese, well-developed Respiratory exam: PRESENT: clear to auscultation fabiola Cardiovascular exam: PRESENT: RRR, +S1, +S2 GI/Abdominal exam: PRESENT: normal bowel sounds, soft. ABSENT: distended, guarding Rectal exam: PRESENT: deferred Neurological exam: PRESENT: alert, awake, oriented to person, oriented to place, oriented to time, oriented to situation, CN II-XII grossly intact. ABSENT: altered Psychiatric exam: PRESENT: appropriate affect. ABSENT: agitated, anxious Focused psych exam: ABSENT: delusional, restlessness Skin exam: PRESENT: dry, normal color, warm. ABSENT: rash Results Laboratory Results: WBC 9.7 10^3/uL (4.0-10.5) 08/13/20 15:25 RBC 5.70 10^6/uL (4.35-5.55) H 08/13/20 15:25 Hgb 15.9 g/dL (13.5-17.0) 08/13/20 15:25 Hct 45.0 % (37.9-51.0) 08/13/20 15:25 MCV 79 fl (80-97) L 08/13/20 15:25 MCH 27.9 pg (27.0-33.4) 08/13/20 15:25 MCHC 35.4 g/dL (32.0-36.0) 08/13/20 15:25 RDW 15.0 % (11.5-14.0) H 08/13/20 15:25 Plt Count 202 10^3/uL (150-450) 08/13/20 15:25 Lymph % (Auto) 15.4 % (13-45) 08/13/20 15:25 [place] % (Auto) 5.6 % (3-13) 08/13/20 15:25 Eos % (Auto) 1.3 % (0-6) 08/13/20 15:25 Baso % (Auto) 0.4 % (0-2) 08/13/20 15:25 Absolute Neuts (auto) 7.5 10^3/uL (1.7-8.2) 08/13/20 15:25 Absolute Lymphs (auto) 1.5 10^3/uL (0.5-4.7) 08/13/20 15:25 Absolute Monos (auto) 0.5 10^3/uL (0.1-1.4) 08/13/20 15:25 Absolute Eos (auto) 0.1 10^3/uL (0.0-0.6) 08/13/20 15:25 Absolute Basos (auto) 0.0 10^3/uL (0.0-0.2) 08/13/20 15:25 Seg Neutrophils % 77.3 % (42-78) 08/13/20 15:25 PT 15.2 SEC (11.4-15.4) 08/13/20 15:25 INR 1.18 08/13/20 15:25 APTT 27.7 SEC (23.5-35.8) 08/13/20 15:25 Sodium 141.4 mmol/L (137-145) 08/14/20 02:57 Potassium 3.9 mmol/L (3.6-5.0) 08/14/20 02:57 Chloride 103 mmol/L (98-107) 08/14/20 02:57 Carbon Dioxide 28 mmol/L (22-30) 08/14/20 02:57 Anion Gap 10 (5-19) 08/14/20 02:57 BUN 16 mg/dL (7-20) 08/14/20 02:57 Creatinine 1.07 mg/dL (0.52-1.25) 08/14/20 02:57 Est GFR ( Amer) > 60 (>60) 08/14/20 02:57 Est GFR (MDRD) Non-Af > 60 (>60) 08/14/20 02:57 Glucose 177 mg/dL (75-110) H 08/14/20 02:57 POC Glucose 191 mg/dL (70-110) H 08/14/20 11:47 Hemoglobin A1c % 6.6 % (4.7-6.0) H 08/14/20 02:57 Calcium 9.4 mg/dL (8.4-10.2) 08/14/20 02:57 Magnesium 2.2 mg/dL (1.6-2.3) 08/14/20 02:57 Total Bilirubin 4.1 mg/dL (0.2-1.3) H 08/14/20 02:57 Direct Bilirubin 0.6 mg/dL (0.0-0.4) H 08/14/20 02:57 Neonat Total Bilirubin Not Reportable 08/14/20 02:57 Neonat Direct Bilirubin Not Reportable 08/14/20 02:57 Neonat Indirect Bili Not Reportable 08/14/20 02:57 GGT 52 U/L (8-78) 08/14/20 02:57 AST 36 U/L (17-59) 08/14/20 02:57 ALT 47 U/L (<50) 08/14/20 02:57 Alkaline Phosphatase 67 U/L (38-126) 08/14/20 02:57 Troponin I 0.016 ng/mL 08/14/20 02:57 NT-Pro-B Natriuret Pep 1560 pg/mL (<125) H 08/13/20 15:25 Total Protein 7.5 g/dL (6.3-8.2) 08/14/20 02:57 Albumin 4.5 g/dL (3.5-5.0) 08/14/20 02:57 Triglycerides 157 mg/dL (<150) H 08/14/20 02:57 Cholesterol 148.43 mg/dL (0-200) 08/14/20 02:57 LDL Cholesterol Direct 104 mg/dL (<100) H 08/14/20 02:57 VLDL Cholesterol 31.4 mg/dL (10-31) H 08/14/20 02:57 HDL Cholesterol 27 mg/dL (>40) L 08/14/20 02:57 08/13/20 08/13/20 08/13/20 15:25 19:57 20:38 Troponin I 0.018 Cancelled 0.017 NT-Pro-B Natriuret Pep 1560 H 08/14/20 02:57 Troponin I 0.016 NT-Pro-B Natriuret Pep Impressions: Chest X-Ray 08/13/20 15:10 IMPRESSION: Atelectasis. Chest/Abdomen CTA 08/13/20 16:25 IMPRESSION: 1. No central or segmental pulmonary embolus. 2. Small bilateral pleural effusions with bibasilar ground-glass opacities may represent developing multifocal airspace process. 3. Other chronic and incidental findings as detailed above. Plan Health Concerns: New onset systolic heart failure with hypertensive emergency and diabetes in a morbidly obese patient with no insurance. This has caused poor compliance. Plan of Treatment: Diabetes-start metformin 500 mg daily New onset acute systolic heart failure with depressed ejection fraction 45%- lisinopril, metoprolol and furosemide along with baby aspirin. Further work-up as an outpatient. Hypertriglyceridemia with hepatic steatosis-continue atorvastatin and monitor lipid profile. With tight glucose control this should improve. Hypertension-medications as above. We discussed low-salt diet with diabetic considerations as well. [facility]. Goals: Compliance and follow-up with physicians. Compliance with medications. Improved lifestyle. Time Spent: Greater than 30 Minutes Stroke Is this a Stroke Patient?: No Acute Heart Failure Is this a Heart Failure Patient?: Yes Documentation of LVEF assessment?: Yes LVEF: LVEF Greater Than 40% Anticoagulant Therapy: N/A Discharged on Evidence-Based Beta Blockers: Yes Discharged on ARNI?: No-Document Contraindications Reason(s) not discharged on ARNI: New onset heart failure Discharged on ARB?: No-document contraindications Reason(s) not Discharged on ARB: Other ARB Reason - Other: New onset heart failure. Discharged on ELHAM inhibitor Discharged on ACEI?: Yes For LVEF <35%, discharged on Aldosterone Antagonist?: N/A (LVEF > or = 35%) Follow-up Appointment scheduled within 7 days?: Yes
[2020-08-14 13:14] VITALS: BP 162/74
== END 2020-08-14 13:50 | disposition home or self-care (01) | DRG 304 ==
LOC: ER 14:16 → EH 18:30 → 3S 21:10
PROVIDERS: ADMIT Hospitalist; ATTEND Hospitalist
DX: I16.1 Hypertensive emergency (principal); I50.21 Acute systolic (congestive) heart failure; Z68.42 Body mass index [BMI] 45.0-49.9, adult; I11.0 Hypertensive heart disease with heart failure; E11.65 Type 2 diabetes mellitus with hyperglycemia; F12.90 Cannabis use, unspecified, uncomplicated; E66.01 Morbid (severe) obesity due to excess calories; Z83.3 Family history of diabetes mellitus; E78.5 Hyperlipidemia, unspecified; K76.0 Fatty (change of) liver, not elsewhere classified; E80.6 Other disorders of bilirubin metabolism; F17.210 Nicotine dependence, cigarettes, uncomplicated; Z82.49 Family history of ischemic heart disease and other diseases of the circulatory system; Z91.19 Patient's noncompliance with other medical treatment and regimen; Z59.7 Insufficient social insurance and welfare support
CPT/HCPCS: 36415; 71045; 71275; 80053; 80061; 82962; 82977; 83036; 83735; 83880; 84484; 85025; 85610; 85730; 93005; 93010; 93306; 96374; 99285; J0360; J1650; J1815; J1940; J3490